=== PATIENT | female | born 1965 | race Caucasian/White ===

== ENCOUNTER 2020-12-07 10:05 | Outpatient (REF) | payer SELFPAY ==
[2020-12-07 10:16] LABS: MANUAL DIFF FLAG NO
[2020-12-07 10:36] LABS: Basophils Absolute Auto 0.1 X10*3/uL (0.0-0.2); Eosinophils Percent Auto 0.2 % (0-4); Hematocrit 40.6 % (37-47); Lymphocytes Absolute Auto 2.4 X10*3/uL (1.2-4.9); Lymphocytes Percent Auto 49.7 % (20-40); Mean Corpuscular Hemoglobin 29.3 pg (27.0-33.0); Mean Corpuscular Volume 91.4 fL (80-98); Mean Platelet Volume 10.2 fL (9.4-12.3); Monocytes Absolute Auto 0.3 X10*3/uL (0.1-1.2); Monocytes Percent Auto 6.7 % (2-11); Neutrophils Percent Auto 42.4 % (45-73); Platelet Count 265 X10*3/uL (160-400); Red Blood Count 4.44 X10*6/uL (4.20-5.50); Red Cell Distribution Width 13.2 % (11.0-16.0); White Blood Count 4.8 X10*3/uL (4.8-10.8)
[2020-12-07 11:04] LABS: Glucose Urine UA NEG (NEG); Leukocyte Esterase Urine NEG (NEG); Nitrite Urine NEG (NEG); Urine Blood NEG (NEG); Urine Ketones NEG (NEG); Urine Protein NEG (NEG-TRACE)
[2020-12-07 11:07] LABS: Alanine Aminotransferase 22 U/L (0-31); Albumin Level 3.8 g/dL (3.5-5.0); Alkaline Phosphatase 63 U/L (39-117); Anion Gap 11 (12-20); Aspartate Amino Transferase 18 U/L (5-31); Bilirubin Total 0.6 mg/dL (0.0-1.0); Blood Urea Nitrogen 16 mg/dL (9-16); Calcium 8.5 mg/dL (8.4-10.2); Carbon Dioxide 28 mmol/L (22-29); Chloride 104 mmol/L (96-108); Cholesterol 219 mg/dL; Estimated Glomerular Filt Rate > 60; Glucose Fasting 69 mg/dL (60-99); HDL Cholesterol 59 mg/dL; LDL Cholesterol Calculated 146 mg/dl; Potassium 4.4 mmol/L (3.3-5.1); Sodium 139 mmol/L (135-145); Total Protein 6.1 g/dL (6.5-8.0); Triglycerides 74 mg/dL
[2020-12-07 11:09] LABS: Appearance Urine CLEAR; Color Urine YELLOW
== END 2020-12-07 10:06 | disposition home or self-care (01) ==
LOC: HO.LNP 10:05
PROVIDERS: Visit Provider Internal Medicine
DX: Z00.00 Encounter for general adult medical examination without abnormal findings (principal); F41.9 Anxiety disorder, unspecified; D72.820 Lymphocytosis (symptomatic); E78.00 Pure hypercholesterolemia, unspecified
CPT/HCPCS: 80053; 80061; 81003; 84443; 85025

== ENCOUNTER 2021-12-16 11:18 | Outpatient (REF) | payer OTHER, SELFPAY ==
[2021-12-16 11:22] LABS: MANUAL DIFF FLAG NO
[2021-12-16 11:30] LABS: Appearance Urine HAZY; Basophils Percent Auto 0.8 % (0-2); Color Urine YELLOW; Eosinophils Absolute Auto 0.1 X10*3/uL (0.0-0.4); Eosinophils Percent Auto 1.3 % (0-4); Glucose Urine UA NEG (NEG); Hematocrit 42.8 % (37.0-47.0); Hemoglobin 13.8 g/dl (12.0-16.0); Imm Gran Abs Auto 0.01 X10*3/uL (0.00-0.03); Imm Gran Pct Auto 0.2 % (0.0-0.4); Leukocyte Esterase Urine NEG (NEG); Lymphocytes Absolute Auto 2.2 X10*3/uL (1.2-4.9); Lymphocytes Percent Auto 44.9 % (20-40); Mean Corpuscular HGB Conc 32.2 g/dl (31.0-35.0); Mean Corpuscular Hemoglobin 29.7 pg (27.0-33.0); Mean Corpuscular Volume 92.2 fL (80.0-98.0); Mean Platelet Volume 10.2 fL (9.4-12.3); Monocytes Absolute Auto 0.3 X10*3/uL (0.1-1.2); Monocytes Percent Auto 6.9 % (2-11); Neutrophils Absolute Auto 2.2 x10*3/uL (2.0-8.3); Neutrophils Percent Auto 45.9 % (45-73); Nitrite Urine NEG (NEG); Platelet Count 266 X10*3/uL (160-400); Red Blood Count 4.64 X10*6/uL (4.20-5.50); Red Cell Distribution Width 14.2 % (11.0-16.0); Specific Gravity - Urine 1.015 (1.005-1.025); Urine Blood NEG (NEG); Urine Ketones NEG (NEG); Urine Protein NEG (NEG-TRACE); White Blood Count 4.8 X10*3/uL (4.8-10.8)
[2021-12-16 11:42] LABS: Alanine Aminotransferase 14 U/L (0-31); Albumin Level 3.8 g/dL (3.5-5.0); Alkaline Phosphatase 60 U/L (39-117); Anion Gap 10 (12-20); Aspartate Amino Transferase 15 U/L (5-31); Bilirubin Total 0.5 mg/dL (0.0-1.0); Blood Urea Nitrogen 17 mg/dL (9-16); Calcium 9.3 mg/dL (8.4-10.2); Carbon Dioxide 29 mmol/L (22-29); Chloride 105 mmol/L (96-108); Cholesterol 280 mg/dL; Estimated Glomerular Filt Rate > 60; Glucose Fasting 89 mg/dL (60-99); HDL Cholesterol 75 mg/dL; LDL Cholesterol Calculated 191 mg/dl; Potassium 4.1 mmol/L (3.3-5.1); Sodium 140 mmol/L (135-145); Total Protein 6.2 g/dL (6.5-8.0); Triglycerides 74 mg/dL
[2021-12-16 12:05] LABS: TSH reflex Free T4 2.25 uIU/mL (0.32-4.0)
== END 2021-12-16 11:19 | disposition home or self-care (01) ==
LOC: HO.LNP 11:18
PROVIDERS: Visit Provider Internal Medicine
DX: Z00.00 Encounter for general adult medical examination without abnormal findings (principal); D72.820 Lymphocytosis (symptomatic); E78.00 Pure hypercholesterolemia, unspecified; Z83.49 Family history of other endocrine, nutritional and metabolic diseases
CPT/HCPCS: 80053; 80061; 81003; 84443; 85025

== ENCOUNTER 2022-05-09 11:30 | Outpatient (REF) | payer OTHER, SELFPAY ==
[2022-05-09 12:40] LABS: Cholesterol 239 mg/dL; HDL Cholesterol 76 mg/dL; LDL Cholesterol Calculated 150 mg/dl; Triglycerides 67 mg/dL
== END 2022-05-09 11:31 | disposition home or self-care (01) ==
LOC: HO.LNP 11:30
PROVIDERS: Visit Provider Internal Medicine
DX: E78.00 Pure hypercholesterolemia, unspecified (principal)
CPT/HCPCS: 80061

== ENCOUNTER 2022-08-21 11:06 | Day surgery (SDC) | payer OTHER, SELFPAY ==
--- NOTE | 2022-08-18 13:52 | P.CONAN_ITS ---
Documented by User: Judy Monet NP 08/18/22 13:55 HPI - Anesthesia Eval Consult details Narrative: 57yo F for Colonoscopy [facility] Past Medical History Medical History Elevated cholesterol Plantar fasciitis Surgical History Surgical History H/O colonoscopy with polypectomy Social History Social History Patient Tobacco Use Status: Never used Tobacco Use of substances other than those prescribed or required for medical reasons: No Are you DNR?: No Advance Directives: No Advance Directives Information Provided: Yes Patient : No Meds Allergies Allergy/AdvReac Type Severity Reaction Status Date / Time penicillin G Allergy Mild Hives Verified 08/21/22 11:14 Home Medications Medication Instructions Recorded Confirmed Last Taken Type Fish Oil 08/18/22 Unknown History Vitamin D3 08/18/22 Unknown History multivitamin with minerals 08/18/22 08/18/22 Unknown History vitamin B complex 08/18/22 Unknown History vitamin E 08/18/22 Unknown History Exam Exam Date and Time: August 18, 2022 135 Assessment and Plan Assessment Anesthesia Assessment: Chart Reviewed Documented by User: Telma Magaña MD 08/21/22 11:59 [facility] Past Medical History Medical History Elevated cholesterol Plantar fasciitis Functional capacity: independent ambulation Patient : No Surgical History Surgical History H/O colonoscopy with polypectomy Social History Social History Patient Tobacco Use Status: Never used Tobacco Use of substances other than those prescribed or required for medical reasons: No Are you DNR?: No Advance Directives: No Advance Directives Information Provided: Yes Patient : No Meds Allergies Allergy/AdvReac Type Severity Reaction Status Date / Time penicillin G Allergy Mild Hives Verified 08/21/22 11:14 Home Medications Medication Instructions Recorded Confirmed Last Taken Type Fish Oil 08/18/22 Unknown History Vitamin D3 08/18/22 Unknown History multivitamin with minerals 08/18/22 08/18/22 Unknown History vitamin B complex 08/18/22 Unknown History vitamin E 08/18/22 Unknown History Exam Airway Mallampati Class: II TM Dist: >3cm Neck ROM: Full Heart: RRR Lungs: Aj Assessment and Plan Final Anesthetic Review ASA Class: II Final Preanesthetic Review: No Changes in Pt Med Stat, Meds/Allgs Chart Reviewed, Consent Obtained/Reviewed and Anes Risks/Benef Reviewed Patient Risk: Low Procedure Risk: Low Anesthetic Plan Anesthetic Plan: MAC: Disposition: Standard PACU
[2022-08-21 11:15] VITALS: BMI 20.1
[2022-08-21 11:22] VITALS: BP 119/70; PULSE 80; RESP 16; TEMP 36.9; O2SAT 100
[2022-08-21] MEDS: Lactated Ringers 1,000 ML 100 ML IVCONT (11:44)
--- NOTE | 2022-08-21 13:09 | P.BOP_ITS ---
Brief Operative Note Date of Service: 08/21/22 Pre-op diagnosis: Screening Post-op diagnosis: other (Polyps) Procedure: Colonoscopy to the cecum and TI with hot snare polypectomy at 40cm and at 60cm, and bx/removal of transverse colon polyp Surgeon: Bry Correa Anesthesia: MAC Was an Cigarette Making Machine Catcher used for this Procedure?: No Estimated blood loss (mL): 2.0 Pathology: other (A. Polyp at 40cm B. Transverse colon polyp C. Polyp at 60cm) Condition: stable Disposition: PACU
[2022-08-21 13:10] VITALS: BP 99/56; PULSE 79; RESP 16; TEMP 36.9; O2SAT 100
[2022-08-21 13:24] VITALS: BP 111/63; PULSE 71; RESP 16; O2SAT 98
[2022-08-21 13:38] VITALS: BP 118/54; PULSE 73; RESP 16; TEMP 36.8; O2SAT 98
--- NOTE | 2022-08-21 13:39 | HO.POSTANES ---
Post Anesthesia Evaluation Post Anesthesia Evaluation Vital Signs: Vital Signs Temp Pulse Resp BP Pulse Ox O2 Del Method 08/21/22 13:38 98.2 F 73 16 118/54 L 98 Room Air 08/21/22 13:24 71 16 111/63 98 Room Air 08/21/22 13:10 98.4 F 79 16 99/56 L 100 Room Air 08/21/22 11:22 98.5 F 80 16 119/70 100 Room Air Anesthesia: Monitored Mental Status: Awake Pain Control: Satisfactory Nausea/Vomiting: None Hydration: Adequate Anesthesia-Related Issues: No Anes. Related Issues
--- NOTE | 2022-08-21 14:21 | OP_ITS ---
SURGEON: Bry Correa MD INDICATIONS: The patient presents for evaluation of personal history of tubular adenoma of the colon and colorectal cancer screening. Full consent was obtained from her for this, including risks of bleeding and perforation. PREOPERATIVE DIAGNOSIS: POSTOPERATIVE DIAGNOSIS: PROCEDURE PERFORMED: ESTIMATED BLOOD LOSS: COMPLICATIONS: ANESTHESIA: Monitored anesthesia care. ASSISTANTS: SPECIMENS: PROCEDURE: Colonoscopy to the cecum and terminal ileum with hot snare polypectomy x 2, and biopsy and removal of polyp. PREOPERATIVE DIAGNOSES: Colorectal cancer screening and personal history of tubular adenoma of the colon. POSTOPERATIVE DIAGNOSES: Colorectal cancer screening and personal history of tubular adenoma of the colon, colon polyps, sigmoid diverticulosis, and internal hemorrhoids. PROCEDURE IN DETAIL: The patient was placed in left lateral decubitus position. The digital rectal exam revealed no abnormalities. The Olympus video pediatric colonoscope was entered into the rectum and advanced easily to the cecum. Once in the cecum, I did identify normal appearing cecal pouch with the appendicial orifice and a normal appearing ileocecal valve. The terminal ileum was cannulated and appeared normal. Scope was withdrawn back in the colon. The entire cecum and ileocecal valve appeared normal. The scope was then slowly withdrawn assessing all mucosal surface carefully. Preparation was excellent. In the transverse colon was an approximately 3 or 4 mm polyp which was biopsied and completely removed with the cold biopsy forceps. At 60 cm was an approximately 5 or 6 mm polyp, which removed by hot snare polypectomy. This was recovered by suction, although the pieces were not definitively consistent with tissue, but we will see what the pathology shows. The polypectomy site appeared clean, without any sign of residual polyp nor bleeding. At 40 cm was an approximately 12 mm flat, but slightly raised polyp, which was removed in piecemeal fashion and recovered by suction. The polypectomy site appeared clean without any sign of residual polyp nor bleeding. I did not visualize any other polyps, colitis, or angiodysplasia. There was a mild amount of sigmoid diverticulosis. In the rectum the scope was retroflexed, visualizing internal hemorrhoids, but no other pathology. The rectal mucosa appeared normal. The scope was straightened and withdrawn from the patient. She tolerated the procedure well and was returned to the recovery area in stable condition. IMPRESSION: 1. Colon polyps. 2. Diverticulosis. 3. Internal hemorrhoids. PLAN: The results of the pathology will be checked. She was advised not to use any aspirin, NSAIDs nor fish oil for 1 week. I recommended repeat colonoscopy in 5 years. She was otherwise seen on p.r.n. basis. MD WILLIS Enamorado/MILY / [id number] MTDD
== END 2022-08-21 14:08 | disposition home or self-care (01) ==
PROVIDERS: PCP Internal Medicine; Visit Provider Internal Medicine
PROC: 0DJD8ZZ Inspection of Lower Intestinal Tract, Via Natural or Artificial Opening Endoscopic (ICD-10-PCS; CPT 45378; principal; 2022-08-21 11:30)
DX: D12.6 Benign neoplasm of colon, unspecified (principal); Z86.010 Personal history of colon polyps; K57.90 Diverticulosis of intestine, part unspecified, without perforation or abscess without bleeding; K64.8 Other hemorrhoids
CPT/HCPCS: 45385; 45380; 88305

== ENCOUNTER 2023-03-30 10:46 | Outpatient (REF) | payer OTHER, SELFPAY ==
[2023-03-30 10:51] LABS: MANUAL DIFF FLAG NO
[2023-03-30 11:07] LABS: Basophils Absolute Auto 0.1 X10*3/uL (0.0-0.2); Basophils Percent Auto 1.2 % (0-2); Eosinophils Percent Auto 0.8 % (0-4); Hematocrit 39.8 % (37.0-47.0); Imm Gran Abs Auto 0.01 X10*3/uL (0.00-0.03); Imm Gran Pct Auto 0.2 % (0.0-0.4); Lymphocytes Absolute Auto 2.5 X10*3/uL (1.2-4.9); Lymphocytes Percent Auto 51.3 % (20-40); Mean Corpuscular HGB Conc 32.7 g/dl (31.0-35.0); Mean Corpuscular Volume 91.9 fL (80.0-98.0); Mean Platelet Volume 10.3 fL (9.4-12.3); Monocytes Absolute Auto 0.4 X10*3/uL (0.1-1.2); Monocytes Percent Auto 7.8 % (2-11); Neutrophils Absolute Auto 1.9 x10*3/uL (2.0-8.3); Neutrophils Percent Auto 38.7 % (45-73); Platelet Count 275 X10*3/uL (160-400); Red Blood Count 4.33 X10*6/uL (4.20-5.50); Red Cell Distribution Width 13.9 % (11.0-16.0); White Blood Count 4.9 X10*3/uL (4.8-10.8)
[2023-03-30 11:08] LABS: Alanine Aminotransferase 10 U/L (0-31); Albumin Level 3.7 g/dL (3.5-5.0); Alkaline Phosphatase 59 U/L (39-117); Anion Gap 11 (12-20); Aspartate Amino Transferase 15 U/L (5-31); Bilirubin Total 0.6 mg/dL (0.0-1.0); Blood Urea Nitrogen 15 mg/dL (9-16); Calcium 8.9 mg/dL (8.4-10.2); Carbon Dioxide 28 mmol/L (22-29); Chloride 105 mmol/L (96-108); Cholesterol 263 mg/dL (<200); Estimated Glomerular Filt Rate > 60; Glucose Fasting 76 mg/dL (60-99); HDL Cholesterol 75 mg/dL (>40); LDL Cholesterol Calculated 175 mg/dL (<100); Sodium 140 mmol/L (135-145); Total Protein 6.1 g/dL (6.5-8.0); Triglycerides 67 mg/dL (<150)
[2023-03-30 11:11] LABS: Appearance Urine Clear; Color Urine Yellow; Glucose Urine UA Negative (Negative); Leukocyte Esterase Urine Small (1+) (Negative); Nitrite Urine Negative (Negative); UMIC TRIGGER UACC YES; Urine Blood Negative (Negative); Urine Ketones Negative (Negative); Urine Protein Negative (Neg-Trace)
[2023-03-30 11:13] LABS: Bacteria Urine None Seen (None Seen); Hyaline Casts Urine 0-2 /LPF (0-2); RBC Urine 0-2 /HPF (0-2); UACC Culture Trigger YES
[2023-04-04 11:18] LABS: Apolipoprotein B 119 mg/dL (<90)
== END 2023-03-30 10:47 | disposition home or self-care (01) ==
LOC: HO.LNP 10:46
PROVIDERS: Visit Provider Internal Medicine
DX: Z00.00 Encounter for general adult medical examination without abnormal findings (principal); D72.820 Lymphocytosis (symptomatic); E78.00 Pure hypercholesterolemia, unspecified; R82.90 Unspecified abnormal findings in urine
CPT/HCPCS: 80053; 80061; 81001; 82172; 85025; 87086

== ENCOUNTER 2023-08-02 11:19 | Outpatient (REF) | payer OTHER, SELFPAY ==
[2023-08-02 11:53] LABS: Alanine Aminotransferase 23 U/L (0-31); Albumin Level 4.2 g/dL (3.5-5.0); Alkaline Phosphatase 63 U/L (39-117); Aspartate Amino Transferase 24 U/L (5-31); Bilirubin Direct 0.2 mg/dL (0.0-0.5); Bilirubin Total 0.5 mg/dL (0.0-1.0); Cholesterol 174 mg/dL (<200); HDL Cholesterol 78 mg/dL (>40); LDL Cholesterol Calculated 83 mg/dL (<100); Total Protein 6.7 g/dL (6.5-8.0); Triglycerides 66 mg/dL (<150)
[2023-08-02 12:35] LABS: Reflex LDLD? No
== END 2023-08-02 11:20 | disposition home or self-care (01) ==
LOC: HO.LNP 11:19
PROVIDERS: Visit Provider Internal Medicine
DX: E78.00 Pure hypercholesterolemia, unspecified (principal)
CPT/HCPCS: 80061; 80076

== ENCOUNTER 2024-02-05 11:10 | Outpatient (REF) | payer OTHER, SELFPAY ==
[2024-02-05 11:58] LABS: Alanine Aminotransferase 15 U/L (0-31); Albumin Level 4.2 g/dL (3.5-5.0); Alkaline Phosphatase 69 U/L (39-117); Aspartate Amino Transferase 18 U/L (5-31); Bilirubin Direct 0.2 mg/dL (0.0-0.5); Bilirubin Total 0.6 mg/dL (0.0-1.0); Cholesterol 271 mg/dL (<200); HDL Cholesterol 73 mg/dL (>40); LDL Cholesterol Calculated 181 mg/dL (<100); Total Protein 6.7 g/dL (6.5-8.0); Triglycerides 88 mg/dL (<150)
[2024-02-05 13:37] LABS: Reflex LDLD? No
== END 2024-02-05 11:11 | disposition home or self-care (01) ==
LOC: HO.LNP 11:10
PROVIDERS: Visit Provider Internal Medicine
DX: E78.00 Pure hypercholesterolemia, unspecified (principal)
CPT/HCPCS: 80061; 80076

== ENCOUNTER 2024-03-31 10:59 | Outpatient (REF) | payer OTHER, SELFPAY ==
[2024-03-31 11:07] LABS: MANUAL DIFF FLAG NO
[2024-03-31 11:16] LABS: Basophils Percent Auto 0.7 % (0-2); Hematocrit 40.2 % (37.0-47.0); Hemoglobin 13.1 g/dl (12.0-16.0); Imm Gran Abs Auto 0.01 X10*3/uL (0.00-0.03); Imm Gran Pct Auto 0.2 % (0.0-0.4); Lymphocytes Absolute Auto 2.2 X10*3/uL (1.2-4.9); Lymphocytes Percent Auto 47.3 % (20-40); Mean Corpuscular HGB Conc 32.6 g/dl (31.0-35.0); Mean Corpuscular Hemoglobin 29.5 pg (27.0-33.0); Mean Corpuscular Volume 90.5 fL (80.0-98.0); Mean Platelet Volume 9.8 fL (9.4-12.3); Monocytes Absolute Auto 0.3 X10*3/uL (0.1-1.2); Monocytes Percent Auto 6.6 % (2-11); Neutrophils Absolute Auto 2.1 x10*3/uL (2.0-8.3); Neutrophils Percent Auto 45.2 % (45-73); Platelet Count 305 X10*3/uL (160-400); Red Blood Count 4.44 X10*6/uL (4.20-5.50); Red Cell Distribution Width 14.5 % (11.0-16.0); White Blood Count 4.6 X10*3/uL (4.8-10.8)
[2024-03-31 11:25] LABS: Appearance Urine Clear; Color Urine Yellow; Glucose Urine UA Negative (Negative); Leukocyte Esterase Urine Negative (Negative); Nitrite Urine Negative (Negative); PH 6.5 (5.0-9.0); Urine Blood Negative (Negative); Urine Ketones Negative (Negative); Urine Protein Negative (Neg-Trace)
[2024-03-31 11:29] LABS: Bacteria Urine None Seen (None Seen); Hyaline Casts Urine 0-2 /LPF (0-2); RBC Urine 0-2 /HPF (0-2); Squamous Epithelial Cell Urine 0-2 /HPF (0-2); WBC Urine 0-5 /HPF (0-5)
[2024-03-31 12:06] LABS: Alanine Aminotransferase 13 U/L (0-31); Albumin Level 3.7 g/dL (3.5-5.0); Alkaline Phosphatase 60 U/L (39-117); Anion Gap 11 (12-20); Aspartate Amino Transferase 16 U/L (5-31); Bilirubin Total 0.4 mg/dL (0.0-1.0); Blood Urea Nitrogen 13 mg/dL (9-16); Calcium 8.9 mg/dL (8.4-10.2); Carbon Dioxide 25 mmol/L (22-29); Chloride 106 mmol/L (96-108); Cholesterol 254 mg/dL (<200); Estimated Glomerular Filt Rate > 60; Glucose Fasting 86 mg/dL (60-99); HDL Cholesterol 73 mg/dL (>40); LDL Cholesterol Calculated 168 mg/dL (<100); Potassium 3.9 mmol/L (3.3-5.1); Sodium 138 mmol/L (135-145); Triglycerides 69 mg/dL (<150)
== END 2024-03-31 11:00 | disposition home or self-care (01) ==
LOC: HO.LNP 10:59
PROVIDERS: Visit Provider Internal Medicine
DX: Z00.00 Encounter for general adult medical examination without abnormal findings (principal); D72.820 Lymphocytosis (symptomatic); E78.00 Pure hypercholesterolemia, unspecified
CPT/HCPCS: 80053; 80061; 81001; 85025

== ENCOUNTER 2024-07-24 10:53 | Outpatient (REF) | payer OTHER, SELFPAY ==
--- OUTSIDE RECORDS SUMMARY | 2024-07-24 11:35 | XMS_ITS ---
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 Generated for Adelaidei salo/Vicki/eTransmitting on:?07/24/2024 11:35 AM EST
--- OUTSIDE RECORDS SUMMARY | 2024-07-24 11:35 | XMS_ITS ---
Author Organization Samuel Schuster MD Address [address] [place] [phone] Care Team Providers Care Architect Naval Name Role Phone Samuel Schuster Primary Care Provider ALLERGIES Allergen (clinical drug ingredient) Drug/Non Drug Allergy documented on EMR Reaction Allergy Type Onset Date Status Penicillin (uncoded) hives Allergy Active REASON FOR VISIT lump on left hip x 30 years getting bigger MEDICATIONS Medication SIG (Take, Route, Frequency, Duration) Notes [...] day for 90 days 04/07/2024 Active Nystatin 741075 UNIT/GM 1 application to affected area Externally Twice a day for 14 days 11/21/2016 Not-Taking VITAL SIGNS BMI 22.24 kg/m2 06/23/2024 Blood pressure systolic 102 mm Hg 06/23/20 24 Blood pressure diastolic 64 mm Hg 024 Height 70 in 06/23/2024 Weight 155 lbs 06/23/2024 weight is up 7 pounds since 04-07-24 Encounters Encounter Location Date Provider Diagnosis Samuel Schuster MD [address] [place] [address] [address] [place], [place] [phone] 06/23/2024 Samuel Schuster Lipoma of hip D17.20 ASSESSMENTS Encounter Date Diagnosis Assessment Notes Treatment Notes Treatment Clinical Notes 06/23/2024 Lipoma of hip (ICD-10 - D17.20) appears most consistant with a lipoma and has been there for 30 years. would recommend just watching it. PLAN OF TREATMENT Treatment Notes Assessment Notes Lipoma of hip appears most consist ant with a lipoma and has been there for 30 years. would recommend just watching it. Next Appt Details Provider Name:Samuel mota, 10/09/2024 07:15:00 AM, [address] [place] [address], [address], [place], [place], [phone], Provider Name:Samuel mota, 04/03/2025 07:00:00 AM, [address] [place] [address], [address], [place], [place], [phone], Provider Name:Samuel mota, 04/10/2025 08:30:00 AM, [address] [place] [address], [address], [place], [place], [phone], Progress Notes * Examination Category Sub-Category Detail Notes General Examination GENERAL APPEARANCE: well dev eloped, well nourished MUSCULOSKELETAL: left hip with a 6 in ch lipomatous mass that has been there since her s
--- OUTSIDE RECORDS SUMMARY | 2024-07-24 11:35 | XMS_ITS | Patient Health Record ---
Author Organization Samuel Schuster MD Address [address] [place], [place] [phone] Care Team Providers Care Fire Lookout Name Role Phone Samuel Schuster Primary Care Provider [phone] ALLERGIES Allergen (clinical drug ingredient) Drug/Non Drug Allergy documented on EMR Reaction Allergy Type Onset Date Status Penicillin (uncoded) hives Allergy Active RESULTS Component Value Reference Range Notes Lisa Scott Reviewed date:08/02/2023 12:12:21 PM Interpretation: Performing Lab:[facility], [address] [place] [phone] Notes/Report: Lisa Scott See Note Specimen held untested for 24 hours; Call to request Chemistry testing. Liver Panel Reviewed date:08/02/2023 05:14:46 PM Interpretation: Performing Lab:[facility], [address] [place] [phone] Notes/Report: Bilirubin Total 0.5 0.0-1.0 mg/dL Bilirubin Direct 0.2 0.0-0.5 mg/dL Aspartate Amino Transferase 24 5-31 U/L Alanine Aminotransferase 23 0-31 U/L Total Protein 6.7 6.5-8.0 g/dL Albumin Level 4.2 3.5-5.0 g/dL Alkaline Phosphatase 63 39-117 U/L Lipid Panel with Reflex Reviewed date:08/02/2023 05:17:55 PM Interpretation: Performing Lab:[facility], [address] [place] [phone] Notes/Report: Triglycerides 66 <150 mg/dL Desirable Triglyceride: less than 150 mg/dL Borderline High Triglyceride 150-199 mg/dL High Triglyceride: 200-499 mg/dL Very High Triglyceride: greater than or equal to 5OO mg/dL Cholesterol 174 <200 mg/dL Desirable Cholesterol: less than 200 mg/dL Borderline High Cholesterol: 200-239 mg/dL High Cholesterol: greater than 239 mg/dL LDL Cholesterol Calculated 83 <100 mg/dL Desirable LDL: less than 100 mg/dL Near Optimal/Above Optimal LDL: 110-129 mg/dL Borderline High LDL: 130-159 mg/dL High LDL: 160-189 mg/dL Very High LDL: greater than or equal to 190 mg/dL HDL Cholesterol 78 >40 mg/dL Desirable HDL: greater than 40 mg/dL Note: This HDL assay may give artificially low results in patients with liver disease. MAMMOGRAM DIGITAL BILATERAL SCREEN Reviewed date:10/26/2023 02:23:11 PM Interpretation:Negative Performing Lab: Notes/Report: Negative Lisa Gold Reviewed date:02/05/2024 12:30:53 PM Interpretation: Performing Lab:[facility], [address] [place] [phone] Notes/Report: Hold Gold See Note Specimen held untested for 24 hours; Call to request Chemistry testing. Liver Panel Reviewed date:02/06/2024 02:01:30 PM Interpretation: Performing Lab:[facility], [address] [place] [phone] Notes/Report: Bilirubin Total 0.6 0.0-1.0 mg/dL Bilirubin Direct 0.2 0.0-0.5 mg/dL Aspartate Amino Transferase 18 5-31 U/L Alanine Aminotransferase 15 0-31 U/L Total Protein 6.7 6.5-8.0 g/dL Albumin Level 4.2 3.5-5.0 g/dL Alkaline Phosphatase 69 39-117 U/L Lipid Panel with Reflex Reviewed date:04/07/2024 02:12:47 PM Interpretation:see back 9-16-2024 Performing Lab:[facility], [address] [place] [phone] Notes/Report: Triglycerides 88 <150 mg/dL Desirable Triglyceride: less than 150 mg/dL Borderline High Triglyceride 150-199 mg/dL High Triglyceride: 200-499 mg/dL Very High Triglyceride: greater than or equal to 5OO mg/dL Cholesterol 271 <200 mg/dL Desirable Cholesterol: less than 200 mg/dL Borderline High Cholesterol: 200-239 mg/dL High Cholesterol: greater than 239 mg/dL LDL Cholesterol Calculated 181 <100 mg/dL Desirable LDL: less than 100 mg/dL Near Optimal/Above Optimal LDL: 110-129 mg/dL Borderline High LDL: 130-159 mg/dL High LDL: 160-189 mg/dL Very High LDL: greater than or equal to 190 mg/dL HDL Cholesterol 73 >40 mg/dL Desirable HDL: greater than 40 mg/dL Note: This HDL assay may give artificially low results in patients with liver disease. Complete Blood Count Auto Di ff Reviewed date:04/01/2024 08:45:29 AM Interpretation: Performing Lab:[facility], [address] [place] [phone] Notes/Report: White Blood Count 4.6 4.8-10.8 X10*3/uL Red Blood Count 4.44 4.20-5.50 X10*6/uL Hemoglobin 13.1 12.0-16.0 g/dl Hematocrit 40.2 37.0-47.0 % Mean Corpuscular Volume 90.5 80.0-98.0 fL Mean Corpuscular Hemoglobin 29.5 27.0-33.0 pg Mean Corpuscular HGB Conc 32.6 31.0-35.0 g/dl Red Cell Distribution Width 14.5 11.0-16.0 % Platelet Count 305 160-400 X10*3/uL Mean Platelet Volume 9.8 9.4-12.3 fL Neutrophils Percent Auto 45.2 45-73 % Imm Gran Pct Auto 0.2 0.0-0.4 % Lymphocytes Percent Auto 47.3 20-40 % Monocytes Percent Auto 6.6 2-11 % Eosinophils Percent Auto 0.0 0-4 % Basophils Percent Auto 0.7 0-2 % NRBC Pct Auto 0.0 0.0-0.2 /100WBC Neutrophils Absolute Auto 2.1 2.0-8.3 x10*3/u L Imm Gran Abs Auto 0.01 0.00-0.03 X10*3/uL Lymphocytes Absolute Auto 2.2 1.2-4.9 X10*3/u L Monocytes Absolute Auto 0.3 0.1-1.2 X10*3/uL Eosinophils Absolute Auto 0.0 0.0-0.4 X10*3/u L Basophils Absolute Auto 0.0 0.0-0.2 X10*3/uL NRBC Abs Auto 0.000 0.0-0.012 X10*3/uL Comprehensive Lenore. Panel Fa st Reviewed date:03/31/2024 04:05:09 PM Interpretation: Performing Lab:[address] [phone] Notes/Report: Sodium 138 135-145 mmol/L Potassium 3.9 3.3-5.1 mmol/L Chloride 106 96-108 mmol/L Carbon Dioxide 25 22-29 mmol/L Anion Gap 11 12-20 Blood Urea Nitrogen 13 9-16 mg/dL Creatinine 0.71 0.5-1.4 mg/dL Estimated Glomerular Filt Rate > 60 NOTE: For -Welsh individuals, multiply the result by 1.210. Chronic Kidney Disease: Estimated GFR < 60 mL/min/1.73m2 Severe Kidney Disease: Estimated GFR < 15 mL/min/1.73m2 Glucose Fasting 86 60-99 mg/dL Calcium 8.9 8.4-10.2 mg/dL Bilirubin Total 0.4 0.0-1.0 mg/dL Aspartate Amino Transferase 16 5-31 U/L Alanine Aminotransferase 13 0-31 U/L Total Protein 6.0 6.5-8.0 g/dL Albumin Level 3.7 3.5-5.0 g/dL Alkaline Phosphatase 60 39-117 U/L Lipid Panel Reviewed date:03/31/2024 04:02:04 PM Interpretation: Performing Lab:[facility], [address] [place] [phone] Notes/Report: Triglycerides 69 <150 mg/dL Desirable Triglyceride: less than 150 mg/dL Borderline High Triglyceride 150-199 mg/dL High Triglyceride: 200-499 mg/dL Very High Triglyceride: greater than or equal to 5OO mg/dL Cholesterol 254 <200 mg/dL Desirable Cholesterol: less than 200 mg/dL Borderline High Cholesterol: 200-239 mg/dL High Cholesterol: greater than 239 mg/dL LDL Cholesterol Calculated 168 <100 mg/dL Desirable LDL: less than 100 mg/dL Near Optimal/Above Optimal LDL: 110-129 mg/dL Borderline High LDL: 130-159 mg/dL High LDL: 160-189 mg/dL Very High LDL: greater than or equal to 190 mg/dL HDL Cholesterol 73 >40 mg/dL Desirable HDL: greater than 40 mg/dL Note: This HDL assay may give artificially low results in patients with liver disease. UA ClnCatch+Micro w/rflx Cul t Reviewed date:03/31/2024 04:07:17 PM Interpretation: Performing Lab:[facility], [address] [place] [phone] Notes/Report: [id number] Urine, Clean Catch Color Urine Yellow Appearance Urine Clear PH 6.5 5.0-9.0 Glucose Urine UA Negative Negative mg/dL Urine Blood Negative Negative Specific [place] - Urine 1.010 1.005-1.025 Urine Protein Negative Neg-Trace mg/dL Urine Ketones Negative Negative mg/dL Nitrite Urine Negative Negative Leukocyte Esterase Urine Negative Negative RBC Urine 0-2 0-2 /HPF WBC Urine 0-5 0-5 /HPF Squamous Epithelial Cell Urine 0-2 0-2 /HPF Bacteria Urine None Seen None Seen Hyaline Casts Urine 0-2 0-2 /LPF REASON FOR REFERRAL Reason plantar fascitis Diagnosis 1 Plantar fasciitis (M 72.2) Referral Organization Samuel Schuster MD Referring Provider First Name Samuel Referring Provider Last Name Landen Referring Provider Speciality Internal M edicine Referred Provider [facility] R e[facility] Referred Provider Specialty Physical The rapist General Notes Jelly Melendez 10:33:31 AM EDT > patient called order / new on refaxed Nora Annette 12/31/2023 01:23:59 PM EDT > called they will be faxing over her last note Referral Priority Routine Referral Appointment Date 10/05/2023 MEDICATIONS Medication SIG (Take, Route, Frequency, Duration) Notes Start Date End Date Status Diprolene AF 0.05 % 1 application Externally Once a day for 30 days 11/24/2019 Not-Taking Advil PM 200-25 MG 2 capsules at bedtim e as needed Orally Once a day for 30 day(s) Not-Taking traZODone HCl 50 MG TAKE 1 TABLET BY MELODY TH EVERY DAY AT BEDTIME NEEDED FOR 30 DAYS for 90 Not-Taking Atorvastatin Calcium 40 MG 1 tablet Orally Once a day for 90 days 04/07/2024 Active Nystatin 734372 UNIT/GM 1 application to affected area Externally Twice a day for 14 days 11/21/2016 Not-Taking IMMUNIZATIONS Vaccine Route Administration Date Status Comme nts DECLINED, FLU Unknown 04/29/2013 Administered SARS-COV-2 Pfizer Unknown 11/05/2020 Administered SARS-COV-2 Pfizer Unknown 11/28/2020 Administered Shingrix Unknown 04/07/2024 Administered [facility] Fluarix Quadrivalent Unknown 12/03/2018 Refused PPSV23 (Pnemovax) Unknown 12/03/2018 Refused Fluarix Quadrivalent Unknown 05/31/2020 Refused PPSV23 (Pnemovax) Unknown 05/31/2020 Refused Fluarix Quadrivalent Unknown 05/16/2022 Refused Fluarix Quadrivalent - 150 Unknown 03/31/2024 Refused Fluarix Quadrivalent - 150 Unknown 04/07/2024 Refused SOCIAL HISTORY Tobacco Use: Social History Observation Description Date Details (start date - stop date) Never Smoker NA - NA Sex Assigned At : Social History Observation Description Sex Assigned At Unknown Tobacco Use/Smoking Question Answer Notes Patient is [...] Never (0 point) Points 2 Interpretation Negative PROBLEMS Problem Type ICD Code Onset Dates Problem Status W/U Status Risk SNOMED Code Notes Problem Lymphocytosis (D72.820) Active confirmed 50546509 Problem Tubular adenoma (D36.9) Active confirmed 511069846 Problem Anxiety (F41.9) Active confirmed 067044 02 Problem Primary insomnia (F51.01) Active confirmed 1895929 Problem Obstructive sleep ap tez (adult) (pediatric) (G47.33) Active confirmed Obstructive sleep apnea syndrome (disorder) (68007439) Problem Intrinsic eczema (L20.84) Active confirmed 74564619 Problem Family history of hypothyroidism (Z83.49) Active confirmed 884553807 Problem Elevated LDL cholesterol level (E78.00) Active confirmed 199728437 Problem OAB (overactive bladder) (N32.81) Active confirmed 533224720 Problem Hypercholesterolemia (E78.00) Active confirmed 83744901 Problem NITHYA (obstructive sle ep apnea) (G47.33) Active confirmed 72034175 Problem Basal cell carcinoma of skin, site unspecified (C44.91) Active confirmed 712567000 VITAL SIGNS Blood pressure diastolic 70 mm Hg 07/24/2024 montse ght is down 2 pounds since 06-23-24 Height 70 in 07/24/2024 weight is down 2 pounds since 06-23-24 Blood pressure systolic 98 mm Hg 07/24/2024 weig ht is down 2 pounds since 06-23-24 Weight 153 lbs 07/24/2024 weight is down 2 pounds since 06-23-24 BMI 21.95 kg/m2 07/24/2024 weight is down 2 pounds since 06-23-24 Encounters Encounter Location Date Provider Diagnosis Samuel Schuster MD [address] [place] [id number] 04/07/2024 Samuel Schuster Lymphocytosis D72.82 0 ; Annual physical exam Z00.00 ; Hypercholesterolemia E78.00 ; Elevated LDL cholesterol level E78.00 and Primary insomnia F51.01 Samuel Schuster MD [address] [place] [id number] 08/02/2023 Samuel Schuster Elevated LDL cholest donald level E78.00 Samuel Schuster MD [address] [place] [id number] 03/31/2024 Samuel Schuster Annual physical exam Z00.00 ; Lymphocytosis D72.820 ; Elevated LDL cholesterol level E78.00 and Hypercholesterolemia E78.00 Samuel Schuster MD [address] [place] [id number] 02/05/2024 Samuel Schuster Hypercholesterolemia E78.00 Samuel Schuster MD [address] [place] [id number] 08/09/2023 Samuel Schuster Plantar fasciitis M7 2.2 and Hypercholesterolemia E78.00 Samuel Schuster MD [address] [place] [id number] 07/24/2024 Samuel Schuster Habitual snoring R06 .83 and Elevated LDL cholesterol level E78.00 Samuel Schuster MD [address] [place] [id number] 06/23/2024 Samuel Schuster Lipoma of hip D17.20 ASSESSMENTS Encounter Date Diagnosis Assessment Notes Treatment Notes Treatment Clinical Notes 04/07/2024 Lymphocytosis (ICD-1 0 - D72.820) stable, will continue to monitor 04/07/2024 Annual physical exam (ICD-10 - Z00.00) labs reviewed and discussed with patient 08/02/2023 Elevated LDL cholest donald level (ICD-10 - E78.00) 03/31/2024 Lymphocytosis (ICD-1 0 - D72.820) 03/31/2024 Annual physical exam (ICD-10 - Z00.00) 02/05/2024 Hypercholesterolemia (ICD-10 - E78.00) 08/09/2023 Plantar fasciitis (I CD-10 - M72.2) try stopping the stair climbing 08/09/2023 Hypercholesterolemia (ICD-10 - E78.00) has done great on atorvastatin, will continue current regiment 07/24/2024 Habitual snoring (IC D-10 - R06.83) to go back to sleep medicine to be reevaluated 06/23/2024 Lipoma of hip (ICD-1 0 - D17.20) appears most consistant with a lipoma and has been there for 30 years. would recommend just watching it. 04/07/2024 Hypercholesterolemia (ICD-10 - E78.00) has agreed to go back on meds, nain understanding of mdication and diretion for use. 03/31/2024 Elevated LDL cholest donald level (ICD-10 - E78.00) 07/24/2024 Elevated LDL cholest donald level (ICD-10 - E78.00) 04/07/2024 Elevated LDL cholest donald level (ICD-10 - E78.00) 03/31/2024 Hypercholesterolemia (ICD-10 - E78.00) 04/07/2024 Primary insomnia (IC D-10 - F51.01) PLAN OF TREATMENT Pending Test Test Name Order Date Electrocardiogram (EKG) 11/11/2015 BONE DENSITY DEXA 11/02/2014 BONE DENSITY DEXA 06/08/2020 Liver Panel 07/24/2024 Lipid Panel 07/24/2024 XR DEXA axial skeleton 12/17/2020 Next Appt Details Provider Name:Samuel Wylie ier, 10/09/2024 07:15:00 AM, [address] [place] [address], [address], [phone], Provider Name:Samuel Wylie ier, 04/03/2025 07:00:00 AM, [address] [place] [address], [address], [phone], Provider Name:Samuel Wylie ier, 04/10/2025 08:30:00 AM, [address] [place] [address], [address], [phone], Insurance Providers Payer Name Payer Address Payer Phone Subscriber Number Group Number Insured Name Patient Relationship to Insured Coverage Start Date Coverage End Date [address] [place] [phone] [id number] GUI SORIA Self - patient is the insured MEDICAL (GENERAL) HISTORY Medical History History ICD Code 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 Martinez Snider,[facility] ([phone]) Mammo done 01/02 colonoscopy done 05/10/[address] Correa - repeat 5 years:[id number] colonoscopy repeat 2 years Elevated blood sugar
--- OUTSIDE RECORDS SUMMARY | 2024-07-24 11:35 | XMS_ITS ---
Author Organization Samuel Schuster MD Address [address] [place] [phone] Care Team Providers Care Roving Inspector Name Role Phone Samuel Schuster Primary Care Provider [phone] ALLERGIES Allergen (clinical drug ingredient) Drug/Non Drug Allergy documented on EMR Reaction Allergy Type Onset Date Status Penicillin (uncoded) hives Allergy Active REASON FOR VISIT 3 MO F/U MEDICATIONS Medication SIG (Take, Route, Frequency, Duration) [...] day for 90 days 04/07/2024 Active Nystatin 605562 UNIT/GM 1 application to affected area Externally Twice a day for 14 days 11/21/2016 Not-Taking VITAL SIGNS BMI 21.95 kg/m2 07/24/2024 Blood pressure systolic 98 mm Hg 07/24/19 25 Blood pressure diastolic 70 mm Hg 025 Height 70 in 07/24/2024 Weight 153 lbs 07/24/2024 weight is down 2 pounds [facility] 06-23-24 Encounters Encounter Location Date Provider Diagnosis Samuel Schuster MD [address] [place] [phone] 07/24/2024 Samuel Schuster Habitual snoring R06.83 and Elevated LDL cholesterol level E78.00 ASSESSMENTS Encounter Date Diagnosis Assessment Notes Treatment Notes Treatment Clinical Notes 07/24/2024 Habitual snoring (ICD-10 - R06.83) to go back to sleep medicine to be reevaluated 07/24/2024 Elevated LDL cholesterol level (ICD-10 - E78.00) PLAN OF TREATMENT Treatment Notes Assessment Notes Habitual snoring to go back to sleep medicine to be reevaluated Pending Test Test Name Order Date Liver Panel 07/24/2024 Lipid Panel 07/24/2024 Next Appt Details Provider Name:Samuel mota, 10/09/2024 07:15:00 AM, [address] [place] [address], [place] [address], [place], [place], [phone], Provider Name:Samuel mota, 04/03/2025 07:00:00 AM, [address] [place] [address], [address], [phone], Provider Name:Samuel mota, 04/10/2025 08:30:00 AM, [address] [place] [address], [phone], Progress Notes * Examination Category Sub-Category Detail Notes General Examination GENERAL APPEARANCE: alert, w ell hydrated, in no distress HEAD: normocephalic HEART: no murmurs, rubs, ga llops , regular rate and rhythm LUNGS: no wheezes, rales, r honchi , good air movement , clear to auscultation bilaterally SKIN: good turgor
--- OUTSIDE RECORDS SUMMARY | 2024-07-24 11:35 | XMS_ITS ---
Author Organization [facility] Address [address] [place] [phone] Care Team Providers Care Crate Tier Name Role Phone Landen MARQUES, Samuel Primary Care Provider Mat Russell [phone] Encounters Encounter [facility] [phone] [facility]/21/[facility] Mat Nieto Plan Of Treatment No Information Progress Notes * Bette SORIAPedroOB:1965 (59 yo F)Acc No.[id number]:12/21/2023 Progress Notes Patient:?Bette SROIAy Provider:?Mat Nieto DPM :1965???Age:58 Y???Sex:Female D ate:12/21/2023 Address:[address] [place], [place] [phone] Pcp:Samuel Schuster MD Subjective: * Chief Complaints: * ??? * Medical History:? Objective: * Vitals:? Assessment: Plan: * Treatment: * Images: * The named appointment provid er may or may not be the originator of this progress note, and it is not deemed complete until electronically signed by the appointment provider. Sign off status: Pending * Provider:?Mat Nieto DPM Date:? 024 Generated for Brandie leong/Vicki/eTransmitting on:?07/24/2024 11:35 AM EST
--- OUTSIDE RECORDS SUMMARY | 2024-07-24 11:35 | XMS_ITS ---
Author Organization [facility] Address [address] [place] [phone] Care Team Providers Care Employee Health Nurse Name Role Phone Landen MARQUES, Samuel Primary Care Provider Mat Russell [phone] Encounters Encounter Location Date [facility] [address] [place] [phone] 12/28/2023 Mat Nieto Plan Of Treatment No Information Progress Notes * Bette SORIAPedroOB:1965 (59 yo F)Acc No.[id number]:12/28/2023 Progress Notes Patient:?Bette SORIAy Provider:?Mat Nieto DPM :1965???Age:58 Y???Sex:Female D ate:12/28/2023 Address:[address] [place], [place] [phone] Pcp:Samuel Schuster MD Subjective: * Chief Complaints: [...]
--- OUTSIDE RECORDS SUMMARY | 2024-07-24 11:35 | XMS_ITS ---
Author Organization Samuel Schuster MD Address [address] [place] [phone] Care Team Providers Care Adjuster Piano Action Name Role Phone Samuel Schuster Primary Care Provider [phone] ALLERGIES Allergen (clinical drug ingredient) Drug/Non Drug Allergy documented on EMR Reaction Allergy Type Onset Date Status Penicillin (uncoded) hives Allergy Active REASON FOR VISIT ANNUAL EXAM/ must see cholesterol MEDICATIONS Medication SIG (Take, Route, Frequency, Duration) Notes Start Date End Date Status Diprolene AF 0.05 % 1 application Externally Once a day for 30 days 11/24/2019 Not-Taking Nystatin 576558 UNIT/GM 1 application to affected area Externally [...] a day for 90 days 04/07/2024 Active IMMUNIZATIONS Vaccine Route Administration Date Status Comme [...] W/U Status Risk SNOMED Code Notes Problem Primary insomnia (F51.01) Active confirmed 2670190 VITAL SIGNS BMI 21.23 kg/m2 04/07/2024 Blood pressure systolic 98 mm Hg 04/07/20 24 Blood pressure diastolic 60 mm Hg 024 Height 70 in 04/07/2024 Weight 148 lbs 04/07/2024 weight is down 6 pounds [facility] 08-09-23 Encounters Encounter Location Date Provider Diagnosis Samuel Schuster MD [address] [place] [address] [place] [phone] 04/07/2024 Samuel Schuster Lymphocytosis D72.82 0 ; Annual physical exam Z00.00 ; Hypercholesterolemia E78.00 ; Elevated LDL cholesterol level E78.00 and Primary insomnia F51.01 ASSESSMENTS Encounter Date Diagnosis Assessment Notes Treatment Notes Treatment Clinical Notes 04/07/2024 Lymphocytosis (ICD-1 0 - D72.820) stable, will continue to monitor 04/07/2024 Annual physical exam (ICD-10 - Z00.00) labs reviewed and discussed with patient 04/07/2024 Hypercholesterolemia (ICD-10 - E78.00) has agreed to go back on meds, vrbaluizamy understanding of mdication and diretion for use. 04/07/2024 Elevated LDL cholest donald level (ICD-10 - E78.00) 04/07/2024 Primary insomnia (IC D-10 - F51.01) PLAN OF TREATMENT Medication Medication Name Sig Start Date Stop [...] with patient Hypercholesterolemia has agreed to go mele terry on meds, nain understanding of mdication and diretion for use. Next Appt Details Follow Up: 3 Months, Reason: Provider Name:Samuel mota, 10/09/2024 07:15:00 AM, [address] [place] [address], [address], [phone], Provider Name:Samuel mota, 04/03/2025 07:00:00 AM, [address] [place] [address], [address], [phone], Provider Name:Samuel mota, 04/10/2025 08:30:00 AM, [address] [place] [address], [address], [phone], Progress Notes * Examination Category Sub-Category Detail Notes General Examination GENERAL APPEARANCE: well dev eloped, well nourished, in no acute distress HEAD: normocephalic, atrau matic EYES: pupils equal, round, reactive to light and accommodation, sclera non- icteric EARS: normal THROAT: clear NECK/THYROID: neck supple, [...] exam intact SKIN: warm and dry, no dipti picious lesions EXTREMITIES: no clubbing, cyanosi s, or edema BREASTS: No mass, no lump RECTAL EXAM: done by film numberer FEMALE GENITOURINARY: done by film numberer ORAL CAVITY: mucosa moist History and Physical Notes * HPI (History of Present Illness) Category Sub-Category Detail Notes Depression Screening PHQ-9 Little inte rest or [...] patient have a vision impairmen t?: Yes ?If yes, what is the vision impairment?: Glasses Does the patient have a cognition impair ment?: No
--- OUTSIDE RECORDS SUMMARY | 2024-07-24 11:36 | XMS_ITS | Patient Health Record ---
Author Organization [facility] Address [address] [place] [address] Care Team Providers Care Plastics Scientist Name Role Phone Samuel Schuster MD Primary Care Provider Mat Russell Unavailable [phone] Reason For Referral No Information Encounters Encounter Location Date Provider Diagnosis [facility] [address] 11/30/2023 Mat Nieto Plan Of Treatment No Information Insurance Providers Payer Name Payer Address Payer Phone Subscriber Number Group Number Insured Name Patient Relationship to Insured Coverage Start Date Coverage End Date [facility] [id number] [address] [address] [place] [address] [phone] [id number] Megan Aguila Self - patient is the insured
--- OUTSIDE RECORDS SUMMARY | 2024-07-24 11:36 | XMS_ITS ---
Author Name [facility] Organization Unknown History of Medication Use Medication Directions Dispensed Refills Start Date End Date Stat us atorvastatin 40 mg tablet TAKE 1 TABLET BY MOUTH EVERY DAY FOR 90 DAYS 10/25/2023 completed meloxicam 15 mg tablet TAKE 1 TABLET BY MOUTH EVERY DAY FOR 30 DAYS 10/25/2023 active estradiol 0.01% (0.1 mg/gram) vaginal cream INSERT 1 GRAM PER VAGINAL THREE TIME PER WEEK FOR 90 DAYS 10/25/2023 completed hydroxyzine HCl 25 mg tablet TAKE 1 TABLET BY MOUTH EVERYDAY AT BEDTIME 10/25/2023 completed Allergies Allergen Reaction Severity Comment Documented Date Source Statu s PENICILLINS ENS_AONECT Problems Problem Status Onset Date Problem Type Date of Resoluti on Source Contusion of right knee active 2023-10-23 ProblemAct ENS_AONECT
--- OUTSIDE RECORDS SUMMARY | 2024-07-24 11:36 | XMS_ITS | Data Portability ---
Author Organization [facility] Barbara Rojas AONE [facility] Address [address] [place] [address] Care Team Providers Care Beamer Operator Name Role Phone ABA STEPHENS Referring Provider LUPE STEPHENS Primary Care Provider Assessment Encounter Date Assessment Date Assessment LastModified by Organization Details LastModified Time 10/23/2023 10/23/2023 Symptoms are consistent with a patellar contusion. We reviewed the x-rays together on the computer. There was no evidence of any patellar fracture and her tenderness was more focal over the patellar tendon, but slightly over the patella. Aggravating alleviating factors were discussed. I would expect her symptoms to continue to improve. She continue with oyso-qfh-sjtvs er anti-inflammat ories or try Voltaren gel. After discussion, she is more optimistic and plans to continue with her planned trip. She will follow-up on an as-needed basis. All questions answered to her satisfaction. [email or web address] Not available 10/23/2023 11:37:58 Plan of Treatment Reminders Order Date Submit Date Provider Last Modified By Organization Details Last Modified Time Details Appointments None record ed. Lab None record ed. Referral None record ed. Procedures None record ed. Surgeries None record ed. Imaging XR, knee, 4 or more view 024 10/23/19 24 [email or web address] 1 [facility], [address], [place], [address], 13:14:20 Medication Orders None record ed. Patient TargetsNo targets recorded. Patient Instructions Encounter Date Encounter Id Patient Instructions Last Modified By Organization Details Last Modified Time 10/23/2023 [id number] Radiographs: 4 views of {{the Left the Right* Both}} knee(s) were obtained in the {{Fate* Lizandro} } office on {{ 10/23/2023#}} including AP, Buckley, lateral (weightbearing), and sunrise. X-rays demonstrated {{normal* mildly decreased}} bony mineralization. Joint spaces {{well-maintained* decrease medially decreased Laterally decrease d patellafemoral space decreased medial and lateral decreased medial and patellafemoral dec reased lateral and patellafemoral dec reased all compartments}} {{. subchondral sclerosis, tibial spiking and osteophytosis.}} No evidence of acute injury or fracture. Findings: {{Normal* Osteoart hritis Mild Osteoarthritis Mod erate Osteoarthritis Sev ere Endstage Osteoarthritis}} {{Right Knee* Left Knee Both Knees}}. X-ray interpretation by: Antwan Pham PA-C Not available 10/23/2023 11:38:18 Reason for Referral None Reported. Problems Name Problem SNOMED Code Status Onset Date Resolution Date Notes Provider Name and Address Organization Details Recorded Time Contusion of right knee 53771980239058 104 Active 2023 ANTWAN PHAM PA-C [address], [place], [address] , [place] [facility] [place] 11:36:53 Problem Notes None recorded. Medical Equipment None Reported. Allergies Allergen ID Allergen Name Allergen Category Reaction Reaction Severity Criticality Documentation Date Start Date Code Code System Note Provider Name and Address Organization Details Recorded Time 16581 Medicinal product containin g penicilli n and acting as antibacte rial agent (product) medicatio n Not available Not available Not available 10/23/2023 36006 05 SNOMED Hayley Galan [facility], [place] [facility] [place] 10:56:50 Medications Name Sig Start Date Stop Date Status Note LastModified by Organization Details LastModified Time atorvastati n 40 mg tablet TAKE 1 TABLET BY MOUTH EVERY DAY FOR 90 DAYS 10/22 completed Not Available Not Available Not Available meloxicam 15 mg tablet TAKE 1 TABLET BY MOUTH EVERY DAY FOR 30 DAYS active Not Available Not Available No t Available hydroxyzine HCl 25 mg tablet TAKE 1 TABLET BY MOUTH EVERYDAY AT BEDTIME 10/22 completed Not Available Not Available Not Available estradiol 0.01% (0.1 mg/gram) vaginal cream INSERT 1 GRAM PER VAGINAL THREE TIME PER WEEK FOR 90 DAYS 10/22 completed Not Available Not Available Not Available Vitals Date Recorded Body height Body mass index (BMI) Body weight Provider Name and Address Organization Details Last Updated DateTime 10/23/2023 177.8 cm 21.5 kg/m2 [address].[address] [place] [facility] [place] 10/23/2023 10:57:37 Social History Question Answer Notes LastModified by Organizat ion Details LastModified Time Tobacco Smoking Status Never Smoker Hayley Galan [facility], [place] [facility] [place] 10/23/2023 10:57:46 What Is Your Level Of Alcohol Consumption? Occasional [email or web address] Information not available 10/23/2023 Do You Use Any Illicit Or Recreational Drugs? No [email or web address] Information not available 10/23/2023 Do You Or Have You Ever Used Any Other Forms Of Tobacco Or Nicotine? No [email or web address] Information not available 10/23/2023 Sex: Unknown Functional Status None recorded. Mental Status None recorded. Family History Nothing Reported. Medical History No medical history recorded. Gynecological HistoryNo gynecological history recorded. Obstetrics History GPAL:G 0 P 0 0 0 0 Past Encounters Encounter ID Performer Location Encounter Start Date Encounter Closed Date Diagnosis/Indication Diagnosis SNOMED-CT Code Diagnosis ICD10 Code [id number] Marcos Ruiz MD [facility] [address] [place] [phone] 10/23/2023 10:39:08 10/23/2023 11:35:59 Pain of right knee joint 8702112583 98512 M25.561 Contusion of right knee 0905251123 2920940 S80.01XA Health Concerns Section Related Observation LastModified by Organization Detai ls LastModified Time None Recorded Concern Status LastModified by Organization Details LastModified Time None Recorded Advance Directives Directive None Recorded Payers Encounter Date Sequence Insurance Name Policy Number Policy Ball Covered Member ID Ball Member ID Guarantor Name 10/23/2023 1 [facility] [id number] Megan Aguila [id number] Megan Aguila Notes Date Note Type Note Provider Name and Address Organization Details Recorded Time 10/23/2023 text/html Patient is a 58-year-old female who presents today with right knee pain. Last week she was walking and struck her knee on a hope chest. She had discomfort in her knee and was hoping it would improve. Reports she has had difficulty kneeling because of her symptoms. She is going on a bike trip to [place] and presents today for urgent care evaluation. No numbness or tingling. No swelling. No bruising. Her only complaint is difficulty kneeling. She did like in the gym and had no problems. She did do Google search which told her she might have a patellar fracture. ANTWAN PHAM PA-C [address], [place], [address], [place] [facility] [place] 10/23/2023 11:38:45 OBGyn Episode No OBEpisode recorded.
--- OUTSIDE RECORDS SUMMARY | 2024-07-24 11:36 | XMS_ITS | Patient Health Record ---
Author Organization [facility] Address [address] [place] [address] Care Team Providers Care Clerk Supervisor Name Role Phone Landen MARQUES, Samuel Primary Care Provider Bry Tate Unavailable [phone] ALLERGIES Allergen (clinical drug ingredient) Drug/Non Drug Allergy documented on EMR Reaction Allergy Type Onset Date Status Penicillin hives Drug Allergy Active REASON FOR REFERRAL No Information MEDICATIONS Medication SIG (Take, Route, Fr equency, Duration) Notes Start Date End Date Status Vitamin E Active Vitamin D Active Vitamin B Complex Ac tive Multivitamin & Mineral Active Fish Oil Active IMMUNIZATIONS Vaccine Route Administration Date Status Comme nts Influenza Unknown 08/03/2022 Refused SOCIAL HISTORY Tobacco Use: Social History Observation Description Date Details (start date - stop date) Never Smoker NA - NA Sex Assigned At : Social History Observation Description Sex Assigned At Unknown Tobacco Use/Smoking Question Answer Notes Patient is a nonsmoker Alcohol Screen Question Answer Notes Did you have a drink contain ing alcohol in the past year? Yes How often did you have a dri nk containing alcohol in the past year? 2 to 3 times a week (3 points) How many drinks did you have on a typical day when you were drinking in the past year? 1 or 2 drinks (0 point) How often did you have 6 or more drinks on one occasion in the past year? Never (0 point) Points 3 Interpretation Positive PROBLEMS Problem Type ICD Code Onset Dates Problem Status W/U Status Risk SNOMED Code Notes Problem Encounter for screening for malignant neoplasm of colon (Z12.11) Active confirmed 947510893 Problem Preprocedural examination (Z01.818) Active confirmed 388713731 Problem Hx of adenomatous colonic polyps (Z86.010) Active confirmed 951864281 Problem Colon cancer screening (Z12.11) Active confirmed 313929223 Problem Diverticulosis of large intestine without perforation or abscess without bleeding (K57.30) Active confirmed Diverticul ar disease of colon (788930691) PLAN OF TREATMENT Future Test Test Name Order Date COLONOSCOPY 02/08/2017 COLONOSCOPY 08/03/2022 Next Appt Details Provider Name:Bry Ritter Madeline , 10/02/2024 09:40:00 AM, [address] [place] [address], [address], [place], [address], Insurance Providers Payer Name Payer Address Payer Phone Subscriber Number Group Number Insured Name Patient Relationship to Insured Coverage Start Date Coverage End Date [facility] [address] [address] [place] [id number] GUI SORIA Self - patient is the insured MEDICAL (GENERAL) HISTORY Medical History History ICD Code Denies [place],DM,CVA,Lung disease,renal dise ase Elevated cholesterol Plantar fascitis Screening colonoscopy in Apr with removal of several small tubular adenomas Surgical History Surgery Date(Month/Year) Laser ablation of cervix around 2006
[2024-07-24 12:21] LABS: Alanine Aminotransferase 25 U/L (0-31); Albumin Level 3.9 g/dL (3.5-5.0); Alkaline Phosphatase 64 U/L (39-117); Aspartate Amino Transferase 30 U/L (5-31); Bilirubin Direct 0.2 mg/dL (0.0-0.5); Bilirubin Total 0.5 mg/dL (0.0-1.0); Cholesterol 183 mg/dL (<200); HDL Cholesterol 74 mg/dL (>40); LDL Cholesterol Calculated 94 mg/dL (<100); Total Protein 6.2 g/dL (6.5-8.0); Triglycerides 76 mg/dL (<150)
== END 2024-07-24 10:54 | disposition home or self-care (01) ==
LOC: HO.LNP 10:53
PROVIDERS: Visit Provider Internal Medicine
DX: R06.83 Snoring (principal)
CPT/HCPCS: 80061; 80076

== ENCOUNTER 2025-03-26 10:31 | Outpatient (REF) | payer OTHER, SELFPAY ==
--- OUTSIDE RECORDS SUMMARY | 2023-12-21 06:30 | XMS_ITS ---
Author Organization [facility] Address [address] [place] [phone] Care Team Providers Care Residential Insurance Inspector Name Role Phone Landen MARQUES, Samuel Primary Care Provider Mat Russell [phone] Encounters Encounter Location Date [facility] [address] [place] [phone] 12/21/2023 Mat Nieto Plan Of Treatment No Information Progress Notes * Reena AGUILAOB:1965 (59 yo F)Acc No.[id number]:12/21/2023 Progress Notes Patient: Megan SALGUERO Provider: Sade Nieto DPM :1965 A ge:58 Y S ex:Female Date:12/21/2023 Address:[address] [place], [place] [phone] Pcp:Samuel Schuster MD Subjective: * Chief Complaints: * * Medical History: Objective: * Vitals: Assessment: Plan: * Treatment: * Images: * The named appointment provid er may or may not be the originator of this progress note, and it is not deemed complete until electronically signed by the appointment provider. Sign off status: Pending * Provider: Sade Nieto DPM Date: 0 12/21/2023 Generated for Brandie leong/Vicki/eTransmitting on: 0 03/26/2025 11:56 AM EDT
--- OUTSIDE RECORDS SUMMARY | 2023-12-28 05:30 | XMS_ITS ---
Author Organization [facility] Address [address] [place] [phone] Care Team Providers Care Banking And Finance Instructor Name Role Phone Landen MARQUES, Samuel Primary Care Provider Mat Russell [phone] Encounters Encounter [facility] Date [facility] [address] [place] [phone] 12/28/2023 Mat Nieto Plan Of Treatment No Information Progress Notes * Reena AGUILAOB:1965 (59 yo F)Acc No.[id number]:12/28/2023 Progress Notes Patient: Megan SALGUERO Provider: Sade Nieto DPM :1965 A ge:58 Y S ex:Female Date:12/28/2023 Address:[address] [place], [place] [phone] Pcp:Samuel Schuster MD Subjective: * Chief Complaints: * * Medical History: Objective: * Vitals: Assessment: Plan: * Treatment: * Images: * The named appointment provid er may or may not be the originator of this progress note, and it is not deemed complete until electronically signed by the appointment provider. Sign off status: Pending * Provider: Sade Nieto DPM Date: 0 12/28/2023 Generated for Brandie leong/Vicki/eTransmitting on: 03/26/2025 11:57 AM EDT
--- OUTSIDE RECORDS SUMMARY | 2024-04-07 10:30 | XMS_ITS ---
Author Organization Samuel Schuster MD Address [address] [place] [phone] Care Team Providers Care Keycase Assembler Name Role Phone Samuel Schuster Primary Care Provider [phone] Allergies Allergen (clinical drug ingredient) Drug/Non Drug Allergy documented on EMR Reaction Allergy Type Onset Date Status Penicillin (uncoded) hives Allergy Active REASON FOR VISIT ANNUAL EXAM/ must see cholesterol Medications Medication SIG (Take, Route, Frequency, Duration) Notes Start Date End Date Status Diprolene AF 0.05 % 1 application Externally Once a day for 30 days 11/24/2019 Not-Taking Nystatin 022880 UNIT/GM 1 application to affected area Externally Twice a day for 14 days 11/21/2016 Not-Taking Advil PM 200-25 MG 2 capsules at bedtim e as needed Orally Once a day for 30 day(s) Not-Taking traZODone HCl 50 MG 1 tablet at bedtime as needed Orally Once a day for 30 day(s) 04/07/2024 Active traZODone HCl 50 MG 1 tablet at bedtime as needed Orally Once a day for 90 days 04/07/2024 Active Atorvastatin Calcium 40 MG 1 tablet Orally Once a day for 90 days 04/07/2024 Active Immunizations Vaccine Route Administration Date Status Comme nts Fluarix Quadrivalent - 150 Unknown 04/07/2024 Refused Social History Tobacco Use: Social History Observation Description Date Details (start date - stop date) Never Smoker NA - NA Tobacco Use/Smoking Question Answer Notes Patient is a nonsmoker Additional Findings: Tobacco Non-User Cu rrent non-smoker, currently using no form of tobacco Alcohol Screen Question Answer Notes Did you have a drink contain ing alcohol in the past year? Yes How often did you have a dri nk containing alcohol in the past year? 2 to 4 times a month (2 points) How many drinks did you have on a typical day when you were drinking in the past year? 1 or 2 drinks (0 point) How often did you have 6 or more drinks on one occasion in the past year? Never (0 point) Points 2 Interpretation Negative Problems Problem Type SNOMED Code ICD Code Onset Dates Problem Status W/U Status Risk Notes Problem 8704365 Primary insomnia (F51.01) Active confirmed Vital Signs Blood pressure systolic 98 mm Hg 04/07/20 24 Blood pressure diastolic 60 mm Hg 024 Height 70 in 04/07/2024 Weight 148 lbs 04/07/2024 BMI 21.23 kg/m2 04/07/2024 weight is down 6 pounds [facility] e 08-09-23 Encounters Encounter Location Date Provider Diagnosis Samuel Schuster MD [address] [place] [address] [place] [phone] 04/07/2024 Samuel Schuster Lymphocytosis D72.82 0 ; Annual physical exam Z00.00 ; Hypercholesterolemia E78.00 ; Elevated LDL cholesterol level E78.00 and Primary insomnia F51.01 Assessments Encounter Date Diagnosis (ICD Code) Assessment Notes Treatment Notes Treatment Clinical Notes Section Notes 04/07/2024 Lymphocytosis (ICD-1 0 - D72.820) stable, will continue to monitor 04/07/2024 Annual physical exam (ICD-10 - Z00.00) labs reviewed and discussed with patient 04/07/2024 Hypercholesterolemia (ICD-10 - E78.00) has agreed to go back on meds, vrbaluizd understanding of mdication and diretion for use. 04/07/2024 Elevated LDL cholesterol level (ICD-10 - E78.00) 04/07/2024 Primary insomnia (ICD-10 - F51.01) Plan Of Treatment Medication Medication Name Sig Start Date Stop Date Notes traZODone HCl 50 MG 1 tablet at bedtime as needed Orally Once a day for 30 day(s) 04/07/2024 traZODone HCl 50 MG 1 tablet at bedtime as needed Orally Once a day for 90 days 04/07/2024 Atorvastatin Calcium 40 MG 1 tablet Oral ly Once a day for 90 days 04/07/2024 Treatment Notes Assessment Notes Lymphocytosis stable, will continu e to monitor Annual physical exam labs reviewed and d iscussed with patient Hypercholesterolemia has agreed to go [place] on meds, nain understanding of mdwillard and diretion for use. Next Appt Details Follow Up: 3 Months, Reason: Provider Name:Samuel Wylie ier, 04/10/2025 08:30:00 AM, [address] [place] [address], [address], [place], [place], [phone], Progress Notes * GUI SORIA EDOB: 3 (58 yo F)Acc No.[id number]:04/07/2024 Progress Notes Patient: GUI SALGUERO Provider: Saadia Schuster MD :1965 A ge:58 Y S ex:Female Date:04/07/2024 Address: [address], [place], [id number] Subjective: * Chief Complaints: * A NNUAL EXAM/ must see cholesterol * HPI: D epression Screening: PHQ-9 L ittle interest or pleasure in doing things N ot at all, F eeling down, depressed, or hopeless N ot at all, T rouble falling or staying asleep, or sleeping too much N ot at all, F eeling tired or having little energy N ot at all, P oor appetite or overeating N ot at all, F eeling bad about yourself or that you are a failure, or have let yourself or your family down N ot at all, T rouble concentrating on things, such as reading the newspaper or watching television N ot at all, M oving or speaking so slowly that other people could have noticed; or the opposite, being so fidgety or restless that you have been moving around a lot more than usual N ot at all, T houghts that you would be better off or of hurting yourself in some way N ot at all, T otal Score 0 . I nterpretation and Intervention D epression Screening Findings N egative, F ollow-Up for Depression : review of PHQ-9 found negative result, no follow-up needed. S EDITH Questions: SDOH Questions I n the past year have you been worried about losing housing? N o, I n the past year have you or any family members you live with been unable to get any of the following when it was really needed? Check all that apply: N one. C ommunication Needs: Communication Needs D oes the patient have a hearing impairment N o, D oes the patient have a vision impairment? Y es, I f yes, what is the vision impairment? G lasses, D oes the patient have a cognition impairment? N o. S ymptom(s): patient is a 58 yo female here for [facility] review of recent labs and follow up of chronis issues, stopped statins because friends told her to do it with diet. * ROS: G eneral/Constitutional: Patient denies f atigue , headache. C hange in appetite?denies. C hills d enies. F ever d enies. O phthalmologic: Blurred vision d enies. D ischarge d enies. P ain d enies. E NT: Patient denies d ecreased sense of smell , any loss of taste , sore throat. D ecreased hearing d enies. S ore throat d enies. S wollen glands d enies. E ndocrine: Cold intolerance d enies. E xcessive thirst d enies. H eat intolerance d enies. W eight loss d enies. R espiratory: Cough d enies. S hortness of breath at rest d enies. S hortness of breath with exertion d enies. W heezing d enies. C ardiovascular: Chest pain at rest d enies. C hest pain with exertion?denies. I rregular heartbeat d enies. S hortness of breath d enies. ? G astrointestinal: Abdominal pain d enies. C hange in bowel habits d enies. D iarrhea d enies. N ausea d enies. R ectal bleeding d enies. V omiting d enies . G enitourinary: Blood in urine d enies. D ifficulty urinating d enies. F requent urination d enies. U rinary incontinence D enies. M usculoskeletal: Patient denies m uscle aches. P ainful joints d enies. W eakness d enies. P eripheral Vascular: Patient denies r ed and blue toes. S kin: Dry skin d enies. I tching d enies. D enies?Mole(s), changes in moles, new moles or any lesions of concern. D enies P hotosensitivity. R hung d enies. N eurologic: Dizziness d enies. F ainting d enies. H eadache?denies. * Medical History: * Surgical History: * Hospitalization/Major Diagno stic Procedure: * Family History: F ather: 76 yrs, pneumonia, diagnosed with Alzheimer disease. M other: alive 81 yrs, arthritis. 2 sister(s) - healthy. . Mother- Healthy no family history of mental illness or drug abuse, Denies mental health/substance abuse family history, Denies mental health/substance abuse family history, Denies mental health/substance abuse family history. * Social History: T obacco Use: T obacco Use/Smoking P atient is a n onsmoker, A dditional Findings: Tobacco Non-User C urrent non-smoker, currently using no form of tobacco. D rugs/Alcohol: A lcohol Screen D id you have a drink containing alcohol in the past year? Y es, H ow often did you have a drink containing alcohol in the past year? 2 to 4 times a month (2 points), H ow many drinks did you have on a typical day when you were drinking in the past year? 1 or 2 drinks (0 point), H ow often did you have 6 or more drinks on one occasion in the past year? N ever (0 point), P oints 2 , I nterpretation N egative. M iscellaneous: C affeine: yes, frequency:, 1-2 cups per day. no Children. no Community involvements. Exercise: yes, gym weights biking. no Home smoke detector use. Living with: alone. Marital status: . Occupation: works full-time. Pets: none. Travel outside of the [place]: yes, [place]. * Medications: N ot-Taking/PRNAdvil PM 200-25 MG Capsule 2 capsules at bedtime as needed Orally Once a dayDiprolene AF 0.05 % Cream 1 application Externally Once a dayNystatin 630616 UNIT/GM Cream 1 application to affected area Externally Twice a dayNot- Taking/PRN Advil PM 200-25 MG Capsule 2 capsules at bedtime as needed Orally Once a dayNot-Taking/PRN Diprolene AF 0.05 % Cream 1 application Externally Once a dayNot-Taking/PRN Nystatin 040602 UNIT/GM Cream 1 application to affected area Externally Twice a dayDiscontinuedUnisom SleepTabs 25 MG Tablet 1 tablet at bedtime as needed Orally Once a dayMeloxicam 15 MG Tablet 1 tablet Orally Once a dayAtorvastatin Calcium 40 MG Tablet 1 tablet Orally Once a dayMedication List reviewed and reconciled with the patientDiscontinued Unisom SleepTabs 25 MG Tablet 1 tablet at bedtime as needed Orally Once a dayDiscontinued Meloxicam 15 MG Tablet 1 tablet Orally Once a dayDiscontinued Atorvastatin Calcium 40 MG Tablet 1 tablet Orally Once a dayMedication List reviewed and reconciled with the patient * Allergies: P enicillin: hivesyes[Allergies Verified] Objective: * Vitals: H t: 70, Wt:148, BMI:21.23, BP:98/60 weight is down 6 pounds since 08-09-23. * P ast Orders: L ab:Lipid Panel (Order Date - 03/31/2024) (Collection Date - 03/31/2024) Value Reference Range Triglycerides 69 <150 - mg/dL Cholesterol 254 H <200 - mg/dL LDL Cholesterol Calculated 168 H <100 - mg/dL HDL Cholesterol 73 >40 - mg/dL L ab:UA ClnCatch+Micro w/rflx Cult (Order Date - 03/31/2024) (Collection Date - 03/31/2024) Value Reference Range Color Urine Yellow - Appearance Urine Clear - PH 6.5 5.0-9.0 - Glucose Urine UA Negative Negative - mg/dL Urine Blood Negative Negative - Specific [place] - Urine 1.010 1.005-1.025 - Urine Protein Negative Neg-Trace - mg/dL Urine Ketones Negative Negative - mg/dL Nitrite Urine Negative Negative - Leukocyte Esterase Urine Negative Negative - RBC Urine 0-2 0-2 - /HPF WBC Urine 0-5 0-5 - /HPF Squamous Epithelial Cell Urine 0-2 0-2 - /HP F Bacteria Urine None Seen None Seen - Hyaline Casts Urine 0-2 0-2 - /LPF L ab:Complete Blood Count Auto Diff (Order Date - 03/31/2024) (Collection Date - 03/31/2024) Value Reference Range White Blood Count 4.6 L 4.8-10.8 - X10*3/uL Red Blood Count 4.44 4.20-5.50 - X10*6/uL Hemoglobin 13.1 12.0-16.0 - g/dl Hematocrit 40.2 37.0-47.0 - % Mean Corpuscular Volume 90.5 80.0-98.0 - fL Mean Corpuscular Hemoglobin 29.5 27.0-33.0 - pg Mean Corpuscular HGB Conc 32.6 31.0-35.0 - g/ dl Red Cell Distribution Width 14.5 11.0-16.0 - % Platelet Count 305 160-400 - X10*3/uL Mean Platelet Volume 9.8 9.4-12.3 - fL Neutrophils Percent Auto 45.2 45-73 - % Imm Gran Pct Auto 0.2 0.0-0.4 - % Lymphocytes Percent Auto 47.3 H 20-40 - % Monocytes Percent Auto 6.6 2-11 - % Eosinophils Percent Auto 0.0 0-4 - % Basophils Percent Auto 0.7 0-2 - % NRBC Pct Auto 0.0 0.0-0.2 - /100WBC Neutrophils Absolute Auto 2.1 2.0-8.3 - x10* 3/uL Imm Gran Abs Auto 0.01 0.00-0.03 - X10*3/uL Lymphocytes Absolute Auto 2.2 1.2-4.9 - X10* 3/uL Monocytes Absolute Auto 0.3 0.1-1.2 - X10*3/ uL Eosinophils Absolute Auto 0.0 0.0-0.4 - X10* 3/uL Basophils Absolute Auto 0.0 0.0-0.2 - X10*3/ uL NRBC Abs Auto 0.000 0.0-0.012 - X10*3/uL L ab:Comprehensive [place]. Panel Fast (Order Date - 03/31/2024) (Collection Date - 03/31/2024) Value Reference Range Sodium 138 135-145 - mmol/L Bilirubin Total 0.4 0.0-1.0 - mg/dL Aspartate Amino Transferase 16 5-31 - U/L Alanine Aminotransferase 13 0-31 - U/L Total Protein 6.0 L 6.5-8.0 - g/dL Albumin Level 3.7 3.5-5.0 - g/dL Alkaline Phosphatase 60 39-117 - U/L Potassium 3.9 3.3-5.1 - mmol/L Chloride 106 96-108 - mmol/L Carbon Dioxide 25 22-29 - mmol/L Anion Gap 11 L 12-20 - Blood Urea Nitrogen 13 9-16 - mg/dL Creatinine 0.71 0.5-1.4 - mg/dL Estimated Glomerular Filt Rate > 60 - Glucose Fasting 86 60-99 - mg/dL Calcium 8.9 8.4-10.2 - mg/dL * Examination: G eneral Examination: GENERAL APPEARANCE: w ell developed, well nourished, in no acute distress. HEAD: n ormocephalic, atraumatic. EYES: p upils equal, round, reactive to light and accommodation, sclera non-icteric. EARS: n ormal. ORAL CAVITY: m ucosa moist. THROAT: c lear. NECK/THYROID: n ronnie supple, full range of motion, no cervical lymphadenopathy, no bruits. SKIN: w arm and dry, no suspicious lesions. HEART: r egular rate and rhythm, S1, S2 normal, no murmurs.? LUNGS: c lear to auscultation bilaterally. BREASTS: N o mass, no lump. ABDOMEN: s oft, nontender, nondistended, bowel sounds present, normal, no organomegaly , no masses palpable. RECTAL EXAM: d one by home health outreach coordinator. FEMALE GENITOURINARY: d one by home health outreach coordinator. EXTREMITIES: n o clubbing, cyanosis, or edema. NEUROLOGIC: n onfocal, motor strength normal upper and lower extremities, sensory exam intact. Assessment: * Assessment: 1. A nnual physical exam - Z00.00 (Primary) 2 . L ymphocytosis - D72.820 3 . H ypercholesterolemia - E78.00 4 . E levated LDL cholesterol level - E78.00 5 . P rimary insomnia - F51.01 Plan: * Treatment: 2. L ymphocytosis Notes: stable, will continue to monitor 3. H ypercholesterolemia Start Atorvastatin Calcium Tablet, 40 MG, 1 tablet, Orally, Once a day, 90 days, 90 Tablet, Refills 3. Notes: has agreed to go back on meds, vrbaluizd understanding of mdication and diretion for use. ? 4. P rimary insomnia Start traZODone HCl Tablet, 50 MG, 1 tablet at bedtime as needed, Orally, Once a day, 30 day(s), 30, Refills 4; S tart traZODone HCl Tablet, 50 MG, 1 tablet at bedtime as needed, Orally, Once a day, 90 days, 90 Tablet, Refills 3. * Immunizations: Fluarix Quadrivalent - 150 (Not administered - Refused: Patient decision) * Procedure Codes: * Follow Up: 3 Months * * Sign off status: Completed true * Provider: Saadia Schuster MD Date: 0 04/07/2024 Generated for Brandie leong/Vicki/Carlositting on: 03/26/2025 11:56 AM EDT History and Physical Notes * HPI (History of Present Illness) Category Sub-Category Detail Notes Category Not es Symptom(s) patient is a 58 yo female here for [facility] review of recent labs and follow up of chronis issues, stopped statins because friends told her to do it with diet Depression Screening PHQ-9 Little inte rest or pleasure in doing things: Not at all Feeling down, depressed, or hopeless: No t at all Trouble falling or staying asleep, or sl eeping too much: Not at all Feeling tired or having little energy: N ot at all Poor appetite or overeating: Not at all Feeling bad about yourself o r that you are a failure, or have let yourself or your family down: Not at all Trouble concentrating on thi ngs, such as reading the newspaper or watching television: Not at all Moving or speaking so slowly that other people could have noticed; or the opposite, being so fidgety or restless that you have been moving around a lot more than usual: Not at all Thoughts that you would be b darian off or of hurting yourself in some way: Not at all Total Score: 0 Interpretation and Intervention Depression Desiree powell Findings: Negative Follow-Up for Depression: : review of PH Q-9 found negative result, no follow-up needed SDOH Questions SDOH Questions In the past year have you been worried about losing housing?: No In the past year have you or any family members you live with been unable to get any of the following when it was really needed? Check all that apply:: None Communication Needs Communication Needs Does the patient have a hearing impairment: No Does the patient have a vision impairmen t?: Yes If yes, what is the vision impairment?: Glasses Does the patient have a cognition impair ment?: No Examination Category Sub-Category Detail Notes Category Not es General Examination GENERAL APPEARANCE: well dev eloped, well nourished, in no acute distress HEAD: normocephalic, atrau matic EYES: pupils equal, round, reactive to light and accommodation, sclera non-icteric EARS: normal THROAT: clear NECK/THYROID: neck supple, full ra nge of motion, no cervical lymphadenopathy, no bruits HEART: regular rate and rhy thm, S1, S2 normal, no murmurs LUNGS: clear to auscultatio n bilaterally ABDOMEN: soft, nontender, non distended, bowel sounds present, normal, no organomegaly , no masses palpable NEUROLOGIC: nonfocal, motor stre ngth normal upper and lower extremities, sensory exam intact SKIN: warm and dry, no dpiti picious lesions EXTREMITIES: no clubbing, cyanosi s, or edema BREASTS: No mass, no lump RECTAL EXAM: done by home health outreach coordinator FEMALE GENITOURINARY: done by home health outreach coordinator ORAL CAVITY: mucosa moist
--- OUTSIDE RECORDS SUMMARY | 2024-06-23 07:15 | XMS_ITS ---
Author Organization Samuel Schuster MD Address [address] [place], [place] [id number] Care Team Providers Care Manager Local Name Role Phone Samuel Schuster Primary Care Provider Allergies Allergen (clinical drug ingredient) Drug/Non Drug Allergy documented on EMR Reaction Allergy Type Onset Date Status Penicillin (uncoded) hives Allergy Active REASON FOR VISIT lump on left hip x 30 years getting bigger Medications Medication SIG (Take, Route, Frequency, Duration) Notes Start Date End Date Status Diprolene AF 0.05 % 1 application Externally Once a day for 30 days 11/24/2019 Not-Taking Advil PM 200-25 MG 2 capsules at bedtim e as needed Orally Once a day for 30 day(s) Not-Taking traZODone HCl 50 MG TAKE 1 TABLET BY MELODY EVERY DAY AT BEDTIME NEEDED FOR 30 DAYS for 90 Not-Taking Atorvastatin Calcium 40 MG 1 tablet Orally Once a day for 90 days 04/07/2024 Active Nystatin 289703 UNIT/GM 1 application to affected area Externally Twice a day for 14 days 11/21/2016 Not-Taking Vital Signs Blood pressure systolic 102 mm Hg 06/23/20 24 Blood pressure diastolic 64 mm Hg 024 Height 70 in 06/23/2024 Weight 155 lbs 06/23/2024 BMI 22.24 kg/m2 06/23/2024 weight is up 7 pounds since 04-07-24 Encounters Encounter Location Date Provider Diagnosis Samuel Schuster MD [address] [place] [address] [address] [place], [place] [phone] 06/23/2024 Samuel Schuster Lipoma of hip D17.20 Assessments Encounter Date Diagnosis (ICD Code) Assessment Notes Treatment Notes Treatment Clinical Notes Section Notes 06/23/2024 Lipoma of hip (ICD-10 - D17.20) appears most consistant with a lipoma and has been there for 30 years. would recommend just watching it. Plan Of Treatment Treatment Notes Assessment Notes Lipoma of hip appears most consist ant with a lipoma and has been there for 30 years. would recommend just watching it. Next Appt Details Provider Name:Samuel Wylie ier, 04/10/2025 08:30:00 AM, [address] [facility], [address], [place], [place], [phone], Progress Notes * GUI SORIA EDOB: 3 (59 yo F)Acc No.[id number]:06/23/2024 Progress Notes Patient: GUI SALGUERO Provider: Saadia Schuster MD :1965 A ge:59 Y S ex:Female Date:06/23/2024 Address:[address] [place] [address], [facility] Subjective: * Chief Complaints: * L ump on left hip x 30 years getting bigger * HPI: S ymptom(s): patient is a 59 yo female here with complaint of lump of left hip, has been therre for 30 years is now getting bigger. * ROS: G eneral/Constitutional: Denies C hills. D enies F atigue. D enies F ever. D enies H eadache. E NT: Patient denies d ecreased sense of smell , any loss of taste , sore throat. D enies S ore throat. R espiratory: Denies C ough. D enies S hortness of breath at rest. D enies S hortness of breath with exertion. G astrointestinal: Denies D iarrhea. D enies N ausea. M usculoskeletal: Patient denies m uscle aches. P eripheral Vascular: Patient denies r ed and blue toes. * Medical History: * Surgical History: * Hospitalization/Major Diagno stic Procedure: * Medications: T akingAtorvastatin Calcium 40 MG Tablet 1 tablet Orally Once a dayTaking Atorvastatin Calcium 40 MG Tablet 1 tablet Orally Once a dayNot-Taking/PRNtraZODone HCl 50 MG Tablet TAKE 1 TABLET BY MOUTH EVERY DAY AT BEDTIME NEEDED FOR 30 DAYS Advil PM 200-25 MG Capsule 2 capsules at bedtime as needed Orally Once a dayDiprolene AF 0.05 % Cream 1 application Externally Once a dayNystatin 072185 UNIT/GM Cream 1 application to affected area Externally Twice a dayMedication List reviewed and reconciled with the patientNot-Taking/PRN traZODone HCl 50 MG Tablet TAKE 1 TABLET BY MOUTH EVERY DAY AT BEDTIME NEEDED FOR 30 DAYS Not-Taking/PRN Advil PM 200-25 MG Capsule 2 capsules at bedtime as needed Orally Once a dayNot-Taking/PRN Diprolene AF 0.05 % Cream 1 application Externally Once a dayNot-Taking/PRN Nystatin 369694 UNIT/GM Cream 1 application to affected area Externally Twice a dayMedication List reviewed and reconciled with the patient * Allergies: P enicillin: hivesyes[Allergies Verified] Objective: * Vitals: H t: 70, Wt:155, BMI:22.24, BP:102/64 weight is up 7 pounds since 04-07-24. * Examination: G eneral Examination: GENERAL APPEARANCE: w ell developed, well nourished. MUSCULOSKELETAL: l eft hip with a 6 inch lipomatous mass that has been there since her 30's. Assessment: * Assessment: 1. L ipoma of hip - D17.20 (Primary) Plan: * Treatment: * Procedure Codes: * * Sign off status: Completed true * Provider: Saadia Schuster MD Date: 08/24/2023 Generated for Brandie leong/Vicki/eTransmitting on: 0 03/26/2025 11:57 AM EDT History and Physical Notes * HPI (History of Present Illness) Category Sub-Category Detail Notes Category Not es Symptom(s) patient is a 59 yo female here with complaint of lump of left hip, has been therre for 30 years is now getting bigger. Examination Category Sub-Category Detail Notes Category Not es General Examination GENERAL APPEARANCE: well developed , well nourished MUSCULOSKELETAL: left hip with a 6 in ch lipomatous mass that has been there since her 30's
--- OUTSIDE RECORDS SUMMARY | 2024-07-24 03:45 | XMS_ITS ---
Author Organization Samuel Schuster MD Address [address] [place], [place] [id number] Care Team Providers Care Sales Service Coordinator Name Role Phone Samuel Schuster Primary Care Provider [phone] Allergies Allergen (clinical drug ingredient) Drug/Non Drug Allergy documented on EMR Reaction Allergy Type Onset Date Status Penicillin (uncoded) hives Allergy Active Results Component Value Reference Range Notes Liver Panel Reviewed date:07/24/2024 12:51:51 PM Interpretation: Performing Lab:[facility], [address] [place] [phone] Notes/Report: Bilirubin Total 0.5 0.0-1.0 mg/dL Bilirubin Direct 0.2 0.0-0.5 mg/dL Aspartate Amino Transferase 30 5-31 U/L Alanine Aminotransferase 25 0-31 U/L Total Protein 6.2 6.5-8.0 g/dL Albumin Level 3.9 3.5-5.0 g/dL Alkaline Phosphatase 64 39-117 U/L Lipid Panel Reviewed date:07/24/2024 12:54:04 PM Interpretation: Performing Lab:[facility], [address] [place] [phone] Notes/Report: Triglycerides 76 <150 mg/dL Desirable Triglyceride: less than 150 mg/dL Borderline High Triglyceride 150-199 mg/dL High Triglyceride: 200-499 mg/dL Very High Triglyceride: greater than or equal to 5OO mg/dL Cholesterol 183 <200 mg/dL Desirable Cholesterol: less than 200 mg/dL Borderline High Cholesterol: 200-239 mg/dL High Cholesterol: greater than 239 mg/dL LDL Cholesterol Calculated 94 <100 mg/dL Desirable LDL: less than 100 mg/dL Near Optimal/Above Optimal LDL: 110-129 mg/dL Borderline High LDL: 130-159 mg/dL High LDL: 160-189 mg/dL Very High LDL: greater than or equal to 190 mg/dL HDL Cholesterol 74 >40 mg/dL Desirable HDL: greater than 40 mg/dL Note: This HDL assay may give artificially low results in patients with liver disease. REASON FOR VISIT 3 MO F/U Medications Medication SIG (Take, Route, Frequency, Duration) Notes Start Date End Date Status Diprolene AF 0.05 % 1 application Externally Once a day for 30 days 11/24/2019 Not-Taking Advil PM 200-25 MG 2 capsules at bedtim e as needed Orally Once a day for 30 day(s) Not-Taking traZODone HCl 50 MG TAKE 1 TABLET BY EVERY DAY AT BEDTIME NEEDED FOR 30 DAYS for 90 Not-Taking Atorvastatin Calcium 40 MG 1 tablet Orally Once a day for 90 days 04/07/2024 Active Nystatin 728157 UNIT/GM 1 application to affected area Externally Twice a day for 14 days 11/21/2016 Not-Taking Vital Signs Blood pressure systolic 98 mm Hg 07/24/19 25 Blood pressure diastolic 70 mm Hg 025 Height 70 in 07/24/2024 Weight 153 lbs 07/24/2024 BMI 21.95 kg/m2 07/24/2024 weight is down 2 pounds sin e 06-23-24 Encounters Encounter Location Date Provider Diagnosis aSmuel Schuster MD [address] [place], [place] [phone] 07/24/2024 Samuel Schuster Habitual snoring R06.83 and Elevated LDL cholesterol level E78.00 Assessments Encounter Date Diagnosis (ICD Code) Assessment Notes Treatment Notes Treatment Clinical Notes Section Notes 07/24/2024 Habitual snoring (ICD-10 - R06.83) to go back to sleep medicine to be reevaluated 07/24/2024 Elevated LDL cholesterol level (ICD-10 - E78.00) pending labs Plan Of Treatment Treatment Notes Assessment Notes Habitual snoring to go back to sleep medicine to be reevaluated Elevated LDL cholesterol level pending l abs Next Appt Details Provider Name:Samuel Wylie ier, 04/10/2025 08:30:00 AM, [address], [address], [place], [place], [phone], Progress Notes * GUI SORIA EDOB: 3 (59 yo F)Acc No.[id number]:07/24/2024 Progress Notes Patient: GUI SALGUERO Provider: Saadia Schuster MD :1965 A ge:59 Y S ex:Female Date:07/24/2024 Address:[address] [place] [address], [facility] Subjective: * Chief Complaints: * 3 MO F/U * HPI: S ymptom(s): patient is a 59 yo female here for 3 month follow up of cholesterol. has tinitus. * ROS: G eneral/Constitutional: Denies C hills. [...] Cream 1 application Externally Once a dayNystatin 973726 UNIT/GM Cream 1 application to affected area [...] 1 application Externally Once a dayNot-Taking/PRN Nystatin 231717 UNIT/GM Cream 1 application to affected area Externally Twice a dayMedication List reviewed and reconciled with the patient * Allergies: P enicillin: hivesyes[Allergies Verified] Objective: * Vitals: H t: 70, Wt:153, BMI:21.95, BP:98/70 weight is down 2 pounds since 06-23-24. * Examination: G eneral Examination: GENERAL APPEARANCE: a lert, well hydrated, in no distress.? HEAD: n ormocephalic. SKIN: g ood turgor. HEART: n o murmurs, rubs, gallops , regular rate and rhythm. LUNGS: n o wheezes, rales, rhonchi , good air movement , clear to auscultation bilaterally. Assessment: * Assessment: 1. H abitual snoring - R06.83 (Primary) 2 . E levated LDL cholesterol level - E78.00? Plan: * Treatment: 2. E levated LDL cholesterol level Notes: pending labs * Procedure Codes: 3 6415 VENIPUNCT, ROUTINE* * * Sign off status: Completed true * Provider: Saadia Schuster MD Date: 0 07/24/2024 Generated for Brandie leong/Vicki/Carlositting on: 0 03/26/2025 11:56 AM EDT History and Physical Notes * HPI (History of Present Illness) Category Sub-Category Detail Notes Category Not es Symptom(s) patient is a 59 yo female here for 3 month follow up of cholesterol. has tinitus Examination Category Sub-Category Detail Notes Category Not es General Examination GENERAL APPEARANCE: alert, w ell hydrated, in no distress HEAD: normocephalic HEART: no murmurs, rubs, ga llops , regular rate and rhythm LUNGS: no wheezes, rales, r honchi , good air movement , clear to auscultation bilaterally SKIN: good turgor
--- OUTSIDE RECORDS SUMMARY | 2024-10-09 03:15 | XMS_ITS ---
Author Organization Samuel Schuster MD Address [address] [place] [phone] Care Team Providers Care Kosher Inspector Name Role Phone Samuel Schuster Primary Care Provider REASON FOR VISIT FASTING LIPIDS Medications Medication SIG (Take, Route, Frequency, Duration) Notes Start Date End Date Status Atorvastatin Calcium 40 MG 1 tablet Oral ly Once a day for 90 days 04/07/2024 Unknown Diprolene AF 0.05 % 1 application Engineering Coordinator ally Once a day for 30 days 11/24/2019 Unknown Nystatin 048713 UNIT/GM 1 application to affected area Externally Twice a day for 14 days 11/21/2016 Unknown traZODone HCl 50 MG TAKE 1 TABLET BY MELODY TH EVERY DAY AT BEDTIME NEEDED FOR 30 DAYS for 90 Unknow n Advil PM 200-25 MG 2 capsules at bedtim e as needed Orally Once a day for 30 day(s) Unknown Encounters Encounter Location Date Provider Diagnosis Samuel Schuster MD [address] [place] [phone] 10/09/2024 Samuel Schuster Hypercholesterolemia E78.00 Assessments Encounter Date Diagnosis (ICD Code) Assessment Notes Treatment Notes Treatment Clinical Notes Section Notes 10/09/2024 Hypercholesterolemia (ICD-10 - E78.00) Plan Of Treatment Pending Test Test Name Order Date Liver Panel 10/09/2024 Lipid Panel with Reflex 10/09/2024 Next Appt Details Provider Name:Samuel Wylie ier, 04/10/2025 08:30:00 AM, [address] [place] [address], [address], [place], [place], [phone], Progress Notes * GUI SORIA EDOB: 3 (59 yo F)Acc No.[id number]:10/09/2024 Progress Note Patient: GUI SALGUERO Provider: Saadia Schuster MD :1965 A ge:59 Y S ex:Female Date:10/09/2024 Address:[address] [place] [address] , [facility] Subjective: * Chief Complaints: * 1 . FASTING LIPIDS. * Medical History: * Medications: U nknown Atorvastatin Calcium 40 MG Tablet 1 tablet Orally Once a day , Unknown traZODone HCl 50 MG Tablet TAKE 1 TABLET BY MOUTH EVERY DAY AT BEDTIME NEEDED FOR 30 DAYS , Unknown Advil PM 200-25 MG Capsule 2 capsules at bedtime as needed Orally Once a day , Unknown Diprolene AF 0.05 % Cream 1 application Externally Once a day , Unknown Nystatin 768618 UNIT/GM Cream 1 application to affected area Externally Twice a day Objective: * Vitals: Assessment: * Assessment: 1. H ypercholesterolemia - E78.00 (Primary) Plan: * Treatment: * * The named appointment provid er may or may not be the originator of this progress note, and it is not deemed complete until electronically signed by the appointment provider. Sign off status: Pending * Provider: Saadia Schuster MD Date: 0 10/09/2024 Generated for Brandie leong/Vicki/Carlositting on: 0 03/26/2025 11:56 AM EDT
--- OUTSIDE RECORDS SUMMARY | 2025-03-26 03:00 | XMS_ITS ---
Author Organization Samuel Schuster MD Address [address] [place] [phone] Care Team Providers Care Color Receiver Name Role Phone Samuel Schuster Primary Care Provider [phone] Results Component Value Reference Range Notes Complete Blood Count Auto Di ff (Not yet reviewed by provider) Interpretation: Performing Lab:[facility], [address] [place] [phone] Notes/Report: White Blood Count 5.6 4.8-10.8 X10*3/uL Red Blood Count 4.46 4.20-5.50 X10*6/uL Hemoglobin 13.2 12.0-16.0 g/dl Hematocrit 40.5 37.0-47.0 % Mean Corpuscular Volume 90.8 80.0-98.0 fL Mean Corpuscular Hemoglobin 29.6 27.0-33.0 pg Mean Corpuscular HGB Conc 32.6 31.0-35.0 g/dl Red Cell Distribution Width 14.2 11.0-16.0 % Platelet Count 283 160-400 X10*3/uL Mean Platelet Volume 10.3 9.4-12.3 fL Neutrophils Percent Auto 49.4 45-73 % Imm Gran Pct Auto 0.4 0.0-0.4 % Lymphocytes Percent Auto 42.0 20-40 % Monocytes Percent Auto 7.3 2-11 % Eosinophils Percent Auto 0.2 0-4 % Basophils Percent Auto 0.7 0-2 % NRBC Pct Auto 0.0 0.0-0.2 /100WBC Neutrophils Absolute Auto 2.8 2.0-8.3 x10*3/u L Imm Gran Abs Auto 0.02 0.00-0.03 X10*3/uL Lymphocytes Absolute Auto 2.4 1.2-4.9 X10*3/u L Monocytes Absolute Auto 0.4 0.1-1.2 X10*3/uL Eosinophils Absolute Auto 0.0 0.0-0.4 X10*3/u L Basophils Absolute Auto 0.0 0.0-0.2 X10*3/uL NRBC Abs Auto 0.000 0.0-0.012 X10*3/uL Lipid Panel (Not yet reviewe d by provider) Interpretation: Performing Lab:[address] [phone] Notes/Report: Triglycerides 54 <150 mg/dL Desirable Triglyceride: less than 150 mg/dL Borderline High Triglyceride 150-199 mg/dL High Triglyceride: 200-499 mg/dL Very High Triglyceride: greater than or equal to 5OO mg/dL Cholesterol 167 <200 mg/dL Desirable Cholesterol: less than 200 mg/dL Borderline High Cholesterol: 200-239 mg/dL High Cholesterol: greater than 239 mg/dL LDL Cholesterol Calculated 91 <100 mg/dL Desirable LDL: less than 100 mg/dL Near Optimal/Above Optimal LDL: 110-129 mg/dL Borderline High LDL: 130-159 mg/dL High LDL: 160-189 mg/dL Very High LDL: greater than or equal to 190 mg/dL HDL Cholesterol 66 >40 mg/dL Desirable HDL: greater than 40 mg/dL Note: This HDL assay may give artificially low results in patients with liver disease. UA ClnCatch+Micro w/rflx Cul t (Not yet reviewed by provider) Interpretation: Performing Lab:[address] [phone] Notes/Report: Urine, Clean Catch Color Urine Yellow Appearance Urine Clear PH 6.0 5.0-9.0 Glucose Urine UA Negative Negative mg/dL Urine Blood Negative Negative Specific [place] - Urine 1.015 1.005-1.025 Urine Protein Negative Neg-Trace mg/dL Urine Ketones Negative Negative mg/dL Nitrite Urine Negative Negative Leukocyte Esterase Urine Negative Negative RBC Urine 0-2 0-2 /HPF WBC Urine 0-5 0-5 /HPF Squamous Epithelial Cell Urine 0-2 0-2 /HPF Bacteria Urine None Seen None Seen Hyaline Casts Urine 0-2 0-2 /LPF REASON FOR VISIT FASTING LABS Encounters Encounter Location Date Provider Diagnosis Samuel Schuster MD [address] [place] [address] [place] [phone] 03/26/2025 Samuel Schuster Blood tests for rout ine general physical examination Z00.00 ; Lymphocytosis D72.820 and Hypercholesterolemia E78.00 Assessments Encounter Date Diagnosis (ICD Code) Assessment Notes Treatment Notes Treatment Clinical Notes Section Notes 03/26/2025 Blood tests for rout ine general physical examination (ICD-10 - Z00.00) 03/26/2025 Lymphocytosis (ICD-1 0 - D72.820) 03/26/2025 Hypercholesterolemia (ICD-10 - E78.00) Plan Of Treatment Pending Test Test Name Order Date Complete Blood Count Auto Diff 5 Comprehensive [place]. Panel Fast 5 Lipid Panel 03/26/2025 UA ClnCatch+Micro w/rflx Cult 03/26/2025 Next Appt Details Provider Name:Samuel Wylie ier, 04/10/2025 08:30:00 AM, [address] [place] [address], Suite [facility], [place], [place], [phone], Progress Notes * GUI SORIA EDOB: 3 (59 yo F)Acc No.[id number]:03/26/2025 Progress Note Patient: GUI SALGUERO E Provider: Saadia Schuster MD :1965 A ge:59 Y S ex:Female Date:03/26/2025 Address:[address] [place] [address] , [id number] Subjective: * Chief Complaints: * 1 . FASTING LABS. * Medical History: Objective: * Vitals: Assessment: * Assessment: 1. B lood tests for routine general physical examination - Z00.00 (Primary) 2 .?Lymphocytosis - D72.820 3 . H ypercholesterolemia - E78.00 ? Plan: * Treatment: 2. L ymphocytosis L AB: Complete Blood Count Auto Diff (Collection Date & Time - 03/26/2025 07:00 AM) L AB: Comprehensive [place]. Panel Fast L AB: Lipid Panel (Collection Date & Time - 03/26/2025 07:00 AM) L AB: UA ClnCatch+Micro w/rflx Cult (Collection Date & Time - 03/26/2025 07:00 AM) 3. H ypercholesterolemia L AB: Complete Blood Count Auto Diff (Collection Date & Time - 03/26/2025 07:00 AM) L AB: Comprehensive [place]. Panel Fast L AB: Lipid Panel (Collection Date & Time - 03/26/2025 07:00 AM) L AB: UA ClnCatch+Micro w/rflx Cult (Collection Date & Time - 03/26/2025 07:00 AM) * Procedure Codes: 3 6415 VENIPUNCT, ROUTINE* * * The named appointment provid er may or may not be the originator of this progress note, and it is not deemed complete until electronically signed by the appointment provider. Sign off status: Pending * Provider: Saadia Schuster MD Date: 0 03/26/2025 Generated for Brandie leong/Vicki/Carlositting on: 03/26/2025 11:56 AM EDT
[2025-03-26 10:34] LABS: MANUAL DIFF FLAG NO
[2025-03-26 10:51] LABS: Hematocrit 40.5 % (37.0-47.0); Hemoglobin 13.2 g/dl (12.0-16.0); Imm Gran Abs Auto 0.02 X10*3/uL (0.00-0.03); Imm Gran Pct Auto 0.4 % (0.0-0.4); Lymphocytes Absolute Auto 2.4 X10*3/uL (1.2-4.9); Mean Corpuscular HGB Conc 32.6 g/dl (31.0-35.0); Mean Corpuscular Hemoglobin 29.6 pg (27.0-33.0); Mean Corpuscular Volume 90.8 fL (80.0-98.0); NRBC Abs Auto 0.000 X10*3/uL (0.0-0.012); NRBC Pct Auto 0.0 /100WBC (0.0-0.2); Platelet Count 283 X10*3/uL (160-400); Red Blood Count 4.46 X10*6/uL (4.20-5.50); White Blood Count 5.6 X10*3/uL (4.8-10.8)
[2025-03-26 10:57] LABS: Appearance Urine Clear; Glucose Urine UA Negative (Negative); PH 6.0 (5.0-9.0); Specific Gravity - Urine 1.015 (1.005-1.025)
[2025-03-26 11:10] LABS: Alanine Aminotransferase 23 U/L (0-31); Albumin Level 4.1 g/dL (3.5-5.0); Alkaline Phosphatase 66 U/L (39-117); Anion Gap 11 (12-20); Aspartate Amino Transferase 24 U/L (5-31); Blood Urea Nitrogen 13 mg/dL (9-16); Calcium 8.7 mg/dL (8.4-10.2); Carbon Dioxide 28 mmol/L (22-29); Chloride 106 mmol/L (96-108); Cholesterol 167 mg/dL (<200); Estimated Glomerular Filt Rate > 60; HDL Cholesterol 66 mg/dL (>40); Potassium 3.8 mmol/L (3.3-5.1); Sodium 141 mmol/L (135-145); Total Protein 6.2 g/dL (6.5-8.0); Triglycerides 54 mg/dL (<150)
--- OUTSIDE RECORDS SUMMARY | 2025-03-26 11:55 | XMS_ITS | Patient Health Record ---
Author Organization [facility] Address [address] [place] [address] Care Team Providers Care Bindery Machine Setter Name Role Phone Landen MARQUES, Samuel Primary Care Provider Bry Tate Unavailable [phone] Allergies Allergen (clinical drug ingredient) Drug/Non Drug [...] Problem Status W/U Status Risk Notes Problem 070339917 Colon cancer screening (Z12.11) Active confirmed Problem 669906556 Encounter for screening for malignant neoplasm of colon (Z12.11) Active confirmed Problem Diverticular disease of colon (515387788) Diverticulosis of large intestine without perforation or abscess without bleeding (K57.30) Active confirmed Problem 813193785 Preprocedural examination (Z01.818) Active confirmed Problem 246566167 Hx of adenomatou s colonic polyps (Z86.010) Active confirmed Problem Benign neoplasm of colon (83134303) Tubulovillous adenoma of large intestine (D12.6) Active confirmed Vital Signs Blood pressure diastolic 11 mm Hg 10/02/2024 Height 70 in 10/02/2024 Blood pressure systolic 111 mm Hg 10/02/2024 Weight 150 lbs 10/02/2024 BMI 21.52 kg/m2 10/02/2024 Procedures Procedure Date Ordered Date Performed Result Body Sit e COLONOSCOPY 10/02/2024 N/A Encounters Encounter Location Date Provider Diagnosis [facility] [address] [place] [address] 10/02/2024 Bry Correa Encounter for screen ing for malignant neoplasm of colon Z12.11 ; Preprocedural examination Z01.818 ; Hx of adenomatous colonic polyps Z86.010 and Tubulovillous adenoma of large intestine D12.6 Assessments Encounter Date Diagnosis (ICD Code) Assessment Notes Treatment Notes Treatment Clinical Notes Section Notes 10/02/2024 Encounter for screening for malignant neoplasm of colon (ICD-10 - Z12.11) Overall, Gui appears quite well. We did review the findings from her colonoscopy in July 2022. We discussed the removal of the relatively large tubulovillous adenoma and the pathology specimen revealing some residual polyp type tissue at the base of the polyp, even though the procedure report describes that the polypectomy site appeared to be free of any residual polyp tissue. Based on the pathology report describing some possible residual polyp tissue at the base of the polyp specimen, along with the nature and size of the polyp in regard to its relatively flat appearance and relatively large size, I did recommend she undergo a colonoscopy this year rather than wait for the typical 3 to 5 years. We did review the rationale for this in regard to colorectal cancer prevention and/or early detection. Full consent has been obtained from her for this, including risks of bleeding and perforation. The procedure will be done with monitored anesthesia care. She was given the below instruction regarding adjustment of her medication for the procedure. Gui was comfortable with this plan. Thank you again for allowing me to participate in Gui's care. I shall continue to keep you advised of her progress. 10/02/2024 Preprocedural examination (ICD-10 - Z01.818) Overall, Gui appears quite well. We did review the findings from her colonoscopy in July 2022. We discussed the removal of the relatively large tubulovillous adenoma and the pathology specimen revealing some residual polyp type tissue at the base of the polyp, even though the procedure report describes that the polypectomy site appeared to be free of any residual polyp tissue. Based on the pathology report describing some possible residual polyp tissue at the base of the polyp specimen, along with the nature and size of the polyp in regard to its relatively flat appearance and relatively large size, I did recommend she undergo a colonoscopy this year rather than wait for the typical 3 to 5 years. We did review the rationale for this in regard to colorectal cancer prevention and/or early detection. Full consent has been obtained from her for this, including risks of bleeding and perforation. The procedure will be done with monitored anesthesia care. She was given the below instruction regarding adjustment of her medication for the procedure. Gui was comfortable with this plan. Thank you again for allowing me to participate in Gui's care. I shall continue to keep you advised of her progress. 10/02/2024 Hx of adenomatous colonic polyps (ICD-10 - Z86.010) Overall, Gui appears quite well. We did review the findings from her colonoscopy in July 2022. We discussed the removal of the relatively large tubulovillous adenoma and the pathology specimen revealing some residual polyp type tissue at the base of the polyp, even though the procedure report describes that the polypectomy site appeared to be free of any residual polyp tissue. Based on the pathology report describing some possible residual polyp tissue at the base of the polyp specimen, along with the nature and size of the polyp in regard to its relatively flat appearance and relatively large size, I did recommend she undergo a colonoscopy this year rather than wait for the typical 3 to 5 years. We did review the rationale for this in regard to colorectal cancer prevention and/or early detection. Full consent has been obtained from her for this, including risks of bleeding and perforation. The procedure will be done with monitored anesthesia care. She was given the below instruction regarding adjustment of her medication for the procedure. Gui was comfortable with this plan. Thank you again for allowing me to participate in Gui's care. I shall continue to keep you advised of her progress. 10/02/2024 Tubulovillous adenoma of large intestine (ICD-10 - D12.6) Overall, Gui appears quite well. We did review the findings from her colonoscopy in July 2022. We discussed the removal of the relatively large tubulovillous adenoma and the pathology specimen revealing some residual polyp type tissue at the base of the polyp, even though the procedure report describes that the polypectomy site appeared to be free of any residual polyp tissue. Based on the pathology report describing some possible residual polyp tissue at the base of the polyp specimen, along with the nature and size of the polyp in regard to its relatively flat appearance and relatively large size, I did recommend she undergo a colonoscopy this year rather than wait for the typical 3 to 5 years. We did review the rationale for this in regard to colorectal cancer prevention and/or early detection. Full consent has been obtained from her for this, including risks of bleeding and perforation. The procedure will be done with monitored anesthesia care. She was given the below instruction regarding adjustment of her medication for the procedure. Gui was comfortable with this plan. Thank you again for allowing me to participate in Gui's care. I shall continue to keep you advised of her progress. Plan Of Treatment Pending Test Test Name Order Date COLONOSCOPY 10/02/2024 Future Test Test Name Order Date COLONOSCOPY 02/08/2017 COLONOSCOPY 08/03/2022 Next Appt Details Provider Name:Bry Ritter Correa , 03/27/2025 07:30:00 AM, [address] [place] [address] , [place], [place], [phone], Insurance Providers Payer Name Payer Address Payer Phone Subscriber Number Group Number Insured Name Patient Relationship to Insured Coverage Start Date Coverage End Date [facility] [address] [place] [phone] [id number] YANG GUI Self - patient is the insured Medical (General) History Medical History History ICD Code Denies RI,DM,CVA,Lung disease,renal dise ase Elevated cholesterol Plantar fascitis Screening colonoscopy in Apr with removal of several small tubular adenomas 07/2022 screening colon--3 po lyps were removed, with 1 revealing a tubular adenoma, 1 with benign colonic mucosa, and 1 with a tubulovillous adenoma with what appeared to be polyp tissue at the base of the polyp specimen--- this latter polyp was approximately 1.5 cm and relatively flat--it did appear to have been completely removed according to the colonoscopy report Surgical History Surgery Date(Month/Year) Laser ablation of cervix around 2006
--- OUTSIDE RECORDS SUMMARY | 2025-03-26 11:56 | XMS_ITS | Patient Health Record ---
Author Organization Samuel Schuster MD Address [address] [place], [place] [id number] Care Team Providers Care Lumber Sales Supervisor Name Role Phone Samuel Schuster Primary Care Provider [phone] Allergies Allergen (clinical drug ingredient) Drug/Non Drug Allergy documented on EMR Reaction Allergy Type Onset Date Status Penicillin (uncoded) hives Allergy Active Results Component Value Reference Range Notes Complete Blood Count Auto Di ff Reviewed date:04/01/2024 08:45:29 AM Interpretation: Performing Lab:[facility], [address] [place] [phone] Notes/Report: White Blood Count 4.6 4.8-10.8 X10*3/uL [...] NRBC Abs Auto 0.000 0.0-0.012 X10*3/uL Comprehensive [place]. Panel Fa st Reviewed date:03/31/2024 04:05:09 PM Interpretation: Performing Lab:[facility], [address] [place] [phone] Notes/Report: Sodium 138 135-145 mmol/L Potassium 3.9 3.3-5.1 mmol/L Chloride 106 96-108 mmol/L Carbon Dioxide 25 22-29 mmol/L Anion Gap 11 12-20 Blood Urea Nitrogen 13 9-16 mg/dL Creatinine 0.71 0.5-1.4 mg/dL Estimated Glomerular Filt Rate > 60 NOTE: For -Bhutanese individuals, multiply the result by 1.210. Chronic [...] Panel Reviewed date:03/31/2024 04:02:04 PM Interpretation: Performing Lab:[facility], [address] [place] [phone] Notes/Report: Triglycerides 69 <150 mg/dL Desirable Triglyceride: [...] t Reviewed date:03/31/2024 04:07:17 PM Interpretation: Performing Lab:[facility], [address] [place] [phone] Notes/Report: [id number] Urine, Clean Catch Color Urine Yellow Appearance Urine Clear PH 6.5 5.0-9.0 Glucose Urine UA Negative Negative mg/dL Urine Blood Negative Negative Specific [place] - Urine 1.010 1.005-1.025 Urine Protein Negative Neg-Trace mg/dL Urine Ketones Negative Negative mg/dL Nitrite Urine Negative Negative Leukocyte Esterase Urine Negative Negative RBC Urine 0-2 0-2 /HPF WBC Urine 0-5 0-5 /HPF Squamous Epithelial Cell Urine 0-2 0-2 /HPF Bacteria Urine None Seen None Seen Hyaline Casts Urine 0-2 0-2 /LPF Complete Blood Count Auto Di ff (Not yet reviewed by provider) Interpretation: Performing Lab:[facility], [address] [place] [phone] Notes/Report: White Blood Count 5.6 4.8-10.8 X10*3/uL [...] yet reviewe d by provider) Interpretation: Performing Lab:[facility], [address] [place] [phone] Notes/Report: Triglycerides 54 <150 mg/dL Desirable Triglyceride: [...] (Not yet reviewed by provider) Interpretation: Performing Lab:[address] [phone] Notes/Report: Urine, Clean Catch Color Urine Yellow Appearance Urine Clear PH 6.0 5.0-9.0 Glucose Urine UA Negative Negative mg/dL Urine Blood Negative Negative Specific [place] - Urine 1.015 1.005-1.025 Urine Protein Negative Neg-Trace mg/dL Urine Ketones Negative Negative mg/dL Nitrite Urine Negative Negative Leukocyte Esterase Urine Negative Negative RBC Urine 0-2 0-2 /HPF WBC Urine 0-5 0-5 /HPF Squamous Epithelial Cell Urine 0-2 0-2 /HPF Bacteria Urine None Seen None Seen Hyaline Casts Urine 0-2 0-2 /LPF Liver Panel Reviewed date:07/24/2024 12:51:51 PM Interpretation: Performing Lab:[address] [phone] Notes/Report: Bilirubin Total 0.5 0.0-1.0 mg/dL Bilirubin Direct 0.2 0.0-0.5 mg/dL Aspartate Amino Transferase 30 5-31 U/L Alanine Aminotransferase 25 0-31 U/L Total Protein 6.2 6.5-8.0 g/dL Albumin Level 3.9 3.5-5.0 g/dL Alkaline Phosphatase 64 39-117 U/L Lipid Panel Reviewed date:07/24/2024 12:54:04 PM Interpretation: Performing Lab:[address] [phone] Notes/Report: Triglycerides 76 <150 mg/dL Desirable Triglyceride: [...] low results in patients with liver disease. Comprehensive Met. Panel (N ot yet reviewed by provider) Interpretation: Performing Lab:[facility], [address] [place] [phone] Notes/Report: Sodium 141 135-145 mmol/L Potassium 3.8 3.3-5.1 mmol/L Chloride 106 96-108 mmol/L Carbon Dioxide 28 22-29 mmol/L Anion Gap 11 12-20 Blood Urea Nitrogen 13 9-16 mg/dL Creatinine 0.75 0.5-1.4 mg/dL Estimated Glomerular Filt Rate > 60 Chronic Kidney Disease: Estimated GFR < 60 mL/min/1.73m2 Severe Kidney Disease: Estimated GFR < 15 mL/min/1.73m2 Glucose Random 78 60-115 mg/dL Calcium 8.7 8.4-10.2 mg/dL Bilirubin Total 0.6 0.0-1.0 mg/dL Aspartate Amino Transferase 24 5-31 U/L Alanine Aminotransferase 23 0-31 U/L Total Protein 6.2 6.5-8.0 g/dL Albumin Level 4.1 3.5-5.0 g/dL Alkaline Phosphatase 66 39-117 U/L Reason For Referral No Information Medications Medication SIG (Take, Route, Frequency, Duration) Notes Start Date End Date Status Atorvastatin Calcium 40 MG 1 tablet Oral ly Once a day for 90 days 04/07/2024 Unknown Diprolene AF 0.05 % 1 application [employer] ally Once a day for 30 days 11/24/2019 Unknown Nystatin 344279 UNIT/GM 1 application to affected area Externally [...] Problem Status W/U Status Risk Notes Problem 99047147 Lymphocytosis (D72.820) Active confirm ed Problem 874243965 Tubular adenoma (D36.9) Active confir med Problem 28405881 Anxiety (F41.9) Active confirmed Problem 5783097 Primary insomnia (F51.01) Active confirmed Problem Obstructive sleep apnea syndrome (disorder) (08326460) Obstructive sleep apnea (adult) (pediatric) (G47.33) Active confirmed Problem 90998231 Intrinsic eczema (L20.84) Active confirmed Problem 830620449 Family history o f hypothyroidism (Z83.49) Active confirmed Problem 153592678 Elevated LDL cholesterol level (E78.00) Active confirmed Problem 406826784 OAB (overactive bladder) (N32.81) Active confirmed Problem 36435181 Hypercholesterol emia (E78.00) Active confirmed Problem 10006960 NITHYA (obstructive sleep apnea) (G47.33) Active confirmed Problem 330026750 Basal cell carci noma of skin, site [...] Date Provider Diagnosis Samuel Schuster MD [address] [place] [phone] 03/31/2024 Samuel Schuster Annual physical exam Z00.00 ; Lymphocytosis D72.820 ; Elevated LDL cholesterol level E78.00 and Hypercholesterolemia E78.00 Samuel Schuster MD [address] [place] [address] Drive [address] [place] [phone] 03/26/2025 Samuel Schuster Blood tests for rout ine general physical examination Z00.00 ; Lymphocytosis D72.820 and Hypercholesterolemia E78.00 Samuel Schuster MD [address] [place] [address] [phone] 04/07/2024 Samuel Schuster Lymphocytosis D72.82 0 ; Annual physical exam Z00.00 ; Hypercholesterolemia E78.00 ; Elevated LDL cholesterol level E78.00 and Primary insomnia F51.01 Samuel Schuster MD [address] [place] [id number] 06/23/2024 Samuel Schuster Lipoma of hip D17.20 Samuel Schuster MD [address] [place] [phone] 07/24/2024 Samuel Schuster Habitual snoring R06 .83 and Elevated LDL cholesterol level E78.00 Assessments Encounter Date Diagnosis (ICD Code) Assessment Notes Treatment Notes Treatment Clinical Notes Section Notes 03/31/2024 Annual physical exam (ICD-10 - Z00.00) 03/31/2024 Lymphocytosis (ICD-1 0 - D72.820) 03/26/2025 Blood tests for rout ine general physical examination (ICD-10 - Z00.00) 04/07/2024 Lymphocytosis (ICD-1 0 - D72.820) stable, [...] Elevated LDL cholesterol level (ICD-10 - E78.00) 03/26/2025 Lymphocytosis (ICD-1 0 - D72.820) 04/07/2024 Hypercholesterolemia (ICD-10 - E78.00) has agreed to go back on nain landers understanding of mdication and diretion for use. 03/31/2024 Hypercholesterolemia (ICD-10 - E78.00) 03/26/2025 Hypercholesterolemia (ICD-10 - E78.00) 04/07/2024 Elevated LDL cholesterol level (ICD-10 - E78.00) 04/07/2024 Primary insomnia (ICD-10 - F51.01) Plan Of Treatment Pending Test Test Name Order Date Electrocardiogram (EKG) 11/11/2015 BONE DENSITY DEXA 06/08/2020 BONE DENSITY DEXA 11/02/2014 Complete Blood Count Auto Diff 5 Comprehensive Met. Panel 03/26/2025 Comprehensive [place]. Panel Fast Lipid Panel 03/26/2025 XR DEXA axial skeleton 12/17/2020 UA ClnCatch+Micro w/rflx Cult 03/26/2025 Next Appt Details Provider Name:Samuel mota, 04/10/2025 08:30:00 AM, [address], [address], [place], [place], [phone], Insurance Providers Payer Name Payer Address Payer Phone Subscriber Number Group Number Insured Name Patient Relationship to Insured Coverage Start Date Coverage End Date [address] [facility] [place] [phone] [id number] GUI SORIA Self - patient is the insured Medical (General) History Medical History History ICD Code PROCESS OWNER, DR. Martinez Snider,[facility] ([phone]) Mammo done 01/02 colonoscopy done 05/10/[address] Correa - repeat 5 years:[id number] colonoscopy repeat 2 years Elevated blood sugar
--- OUTSIDE RECORDS SUMMARY | 2025-03-26 11:56 | XMS_ITS | Patient Health Record ---
Author Organization [facility] Address [address] [place] [address] Care Team Providers Care Consulting Solution Director Name Role Phone RAMY QUINTERO Unavailable [phone] Allergies Allergen (clinical drug ingredient) Drug/Non Drug Allergy documented on EMR Reaction Allergy Type Onset Date Status Penicillin Hives Drug Allergy Active Results Component Value Reference Range Notes [id number] IGP No Culture 30 Plus Reviewed date:10/15/2024 08:28:23 AM Interpretation: Performing Lab:[facility], [address], [place], Phone - [phone], Director - [facility] Notes/Report: Clinical Information:Cervical, LMP: [place] [id number] Dates / Results....04/02/20 NIL, Neg HPV Other..............Post Menopausal No. of containers..01 ThinPrep Vial DIAGNOSIS: NEGATIVE FOR IN TRAEPITHELIAL LESION OR MALIGNANCY. Specimen adequacy: Satisfactory for evaluation. Endocervical and/or squamous metaplastic cells (endocervical component) are present. Clinician provided ICD10: Z0 1.419 Performed by: Mathew Reynoso , Industrial Twisting Machine Operator (ASCP) . . Note: The Pap smear [...] Rachel [address], [address], [place], Phone - [phone], Director - [facility] Notes/Report: Clinical Information:Cervical, LMP: [place] [id number] Dates / Results....04/02/20 NIL, Neg HPV Other..............Post Menopausal No. of containers..01 ThinPrep Vial Reason For Referral No Information Medications Medication SIG (Take, Route, Frequency, Duration) Notes Start Date End Date Status Estradiol 0.1 MG/GM 1 gram Vaginal three times weekly; Duration: 365 days 10/10/2024 Active Atorvastatin Calcium 40 MG TAKE 1 TABLET BY MOUTH EVERY DAY FOR 90 DAYS Oral; Duration: 90 Days Active Social History Tobacco Use: [...] Status Risk Notes Problem Postmenopausal atrophic vaginitis (42337040) Postmenopausal atrophic vaginitis (N95.2) Active confirmed Problem Hyperlipidemia (19361213) Hyperlipidemia, unspecified (E78.5) Active confirmed Problem COVID-19 (101957972) COVID-19 (U07.1) Active confirmed Vital Signs Temperature 97.4 degrees Fahrenheit 10/10/2024 Blood pressure diastolic 70 mm Hg 10/10/2024 Height 70 in 10/10/2024 Blood pressure systolic 104 mm Hg 10/10/2024 Weight 152 lbs 10/10/2024 BMI 21.81 kg/m2 10/10/2024 Encounters Encounter Location Date Provider Diagnosis [facility] [address] [place] [address] 10/10/2024 RAMY QUINTERO Encounter for gynecological examination [...] Name:RAMY LEDBETTER Claribel, 10/16/2025 09:40:00 AM, [address], [address], [place], [address], Insurance Providers Payer Name Payer Address Payer Phone Subscriber Number Group Number Insured Name Patient Relationship to Insured Coverage Start Date Coverage End Date [facility] [address] [place] [address] [id number] SORIA Self - patient is the insured Medical (General) History Medical History History ICD Code Dense breasts, unspecified R92.30 Mammographic heterogeneous density, bila teral breasts R92.333 Hyperlipidemia, unspecified E78.5 COVID-19 U07.1 Surgical History Surgery Date(Month/Year) LASER ablation cervix 2006 Colonoscopy 07/2022
--- OUTSIDE RECORDS SUMMARY | 2025-03-26 11:56 | XMS_ITS | Patient Health Record ---
Author Organization [facility] Address [address] [place] [address] Care Team Providers Care Massage Therapy Instructor Name Role Phone Samuel Schuster MD Primary Care Provider Mat Russell Unavailable [phone] Reason For Referral No Information Plan Of Treatment No Information Insurance Providers Payer Name Payer Address Payer Phone Subscriber Number Group Number Insured Name Patient Relationship to Insured Coverage Start Date Coverage End Date [id number] [address] [place] [address] [id number] Megan Aguila Self - patient is the insured
--- OUTSIDE RECORDS SUMMARY | 2025-03-26 11:56 | XMS_ITS ---
Author Name [facility] Organization Unknown Allergies Allergen Reaction Severity Comment Documented Date Source Statu s [place] ENS_AONECT Problems Problem Status Onset Date Problem Type Date of Resoluti on Source Contusion of right knee active 2023-10-23 ProblemAct ENS_AONECT Encounters Encounter Type Encounter Reason Primary Diagnosis Location Date Ambulatory [facility] 10/24/2023 [facility]ulatory [facility] 10/23/2023 [facility] 10/23/2023 [facility] 10/23/2023 [facility] [place] 10/23/2023 Ambulatory [facility] 10/23/2023 Care Team Organization Name Specialty Phone Email Start Date End [facility] 12/23/[facility] Samuel Schuster MD Primary Care
== END 2025-03-26 10:32 | disposition home or self-care (01) ==
LOC: HO.LNP 10:31
PROVIDERS: Visit Provider Internal Medicine
DX: Z00.00 Encounter for general adult medical examination without abnormal findings (principal); E78.00 Pure hypercholesterolemia, unspecified; D72.820 Lymphocytosis (symptomatic)
CPT/HCPCS: 80053; 80061; 81001; 85025

== ENCOUNTER 2025-03-27 06:26 | Day surgery (SDC) | payer OTHER, SELFPAY ==
--- OUTSIDE RECORDS SUMMARY | 2024-12-11 09:13 | XMS_ITS | Patient Health Record ---
Author Organization [facility] Address [address] [place] [address] Care Team Providers Care Appeals Nurse Name Role Phone Landen MARQUES, Samuel Primary Care Provider Bry Tate Unavailable [phone] Allergies Allergen (clinical drug ingredient) Drug/Non Drug Allergy documented on EMR Reaction Allergy Type Onset Date Status Penicillin hives Drug Allergy Active Reason For Referral No Information Medications Medication SIG (Take, Route, Frequency, Duration) Notes Start Date End Date Status Vitamin B Complex Ac tive Vitamin E Active Atorvastatin Calcium 10 MG 1 tablet Oral ly Once a day Active Multivitamin & Mineral Active Fish Oil Active Vitamin D Active Immunizations Vaccine Route Administration Date Status Comme nts Influenza Unknown 08/03/2022 Refused Social History Tobacco Use: Social History [...] Never (0 point) Points 3 Interpretation Positive Section Notes: Nonsmoker; no sig alcohol Nonsmoker; no sig alcohol Nonsmoker; no sig alcohol Problems Problem Type SNOMED Code ICD Code Onset Dates Problem Status W/U Status Risk Notes Problem 396940025 Colon cancer screening (Z12.11) Active confirmed Problem 183355517 Encounter for screening for malignant neoplasm of colon (Z12.11) Active confirmed Problem Diverticular disease of colon (647685055) Diverticulosis of large intestine without perforation or abscess without bleeding (K57.30) Active confirmed Problem 844227112 Preprocedural examination (Z01.818) Active confirmed Problem 961122558 Hx of adenomatou s colonic polyps (Z86.010) Active confirmed Problem Tubulovillous adenoma of large intestine (D12.6) Active confirmed Vital Signs Blood pressure diastolic 11 mm Hg 10/02/2024 Height 70 in 10/02/2024 Blood pressure systolic 111 mm Hg 10/02/2024 Weight 150 lbs 10/02/2024 BMI 21.52 kg/m2 10/02/2024 Procedures Procedure Date Ordered Date Performed Result Body Sit e COLONOSCOPY 10/02/2024 N/A Encounters Encounter Location Date Provider Diagnosis [facility] [address] [place] [address] 10/02/2024 Bry Correa Encounter for screen ing for malignant neoplasm of colon Z12.11 ; Preprocedural examination Z01.818 ; Hx of adenomatous colonic polyps Z86.010 and Tubulovillous adenoma of large intestine D12.6 Assessments Encounter Date Diagnosis (ICD Code) Assessment Notes Treatment Notes Treatment Clinical Notes Section Notes 10/02/2024 Encounter for screening for malignant neoplasm of colon (ICD-10 - Z12.11) 10/02/2024 Preprocedural examination (ICD-10 - Z01.818) 10/02/2024 Hx of adenomatous colonic polyps (ICD-10 - Z86.010) 10/02/2024 Tubulovillous adenoma of large intestine (ICD-10 - D12.6) Plan Of Treatment Pending Test Test Name Order Date COLONOSCOPY 10/02/2024 Future Test Test Name Order Date COLONOSCOPY 02/08/2017 COLONOSCOPY 08/03/2022 Next Appt Details Provider Name:Bry Correa , 01/02/2025 08:35:00 AM, [address] [facility] , [place], [place], [phone], Insurance Providers Payer Name Payer Address Payer Phone Subscriber Number Group Number Insured Name Patient Relationship to Insured Coverage Start Date Coverage End Date [employer] [address] [place] [phone] [id number] GUI SORIA Self - patient is the insured Medical (General) History Medical History History ICD Code Denies IN,DM,CVA,Lung disease,renal dise ase Elevated cholesterol Plantar fascitis Screening colonoscopy in Apr with removal of several small tubular adenomas 07/2022 colonoscopy Surgical History Surgery Date(Month/Year) Laser ablation of cervix around 2006
--- OUTSIDE RECORDS SUMMARY | 2024-12-11 09:13 | XMS_ITS ---
Author Organization Samuel Schuster MD Address [address] [place], [place] [phone] Care Team Providers Care Inspector Dials Name Role Phone Samuel Schuster Primary Care Provider [phone] Allergies Allergen (clinical drug ingredient) Drug/Non Drug Allergy documented on EMR Reaction Allergy Type Onset Date Status Penicillin (uncoded) hives Allergy Active Results Component Value Reference Range Notes Liver Panel Reviewed date:07/24/2024 12:51:51 PM Interpretation: Performing Lab:[facility], [address] [place] [phone] Notes/Report: Bilirubin Total 0.5 0.0-1.0 mg/dL Bilirubin Direct 0.2 0.0-0.5 mg/dL Aspartate Amino Transferase 30 5-31 U/L Alanine Aminotransferase 25 0-31 U/L Total Protein 6.2 6.5-8.0 g/dL Albumin Level 3.9 3.5-5.0 g/dL Alkaline Phosphatase 64 39-117 U/L Lipid Panel Reviewed date:07/24/2024 12:54:04 PM Interpretation: Performing Lab:[facility], [address] [place] [phone] Notes/Report: Triglycerides 76 <150 mg/dL Desirable Triglyceride: [...] day for 90 days 04/07/2024 Active Nystatin 637944 UNIT/GM 1 application to affected area Externally Twice a day for 14 days 11/21/2016 Not-Taking Vital Signs Blood pressure systolic 98 mm Hg 07/24/19 25 Blood pressure diastolic 70 mm Hg 025 Height 70 in 07/24/2024 Weight 153 lbs 07/24/2024 BMI 21.95 kg/m2 07/24/2024 weight is down 2 pounds sin e 06-23-24 Encounters Encounter Location Date Provider Diagnosis Samuel Schuster MD [address] [place], [place] [phone] 07/24/2024 Samuel Schuster Habitual snoring R06.83 and [...] Next Appt Details Provider Name:Samuel Wylie ier, 03/27/2025 07:00:00 AM, [address], [address], [place], [place], [phone], Provider Name:Samuel Wylie ier, 04/10/2025 08:30:00 AM, [address], [address], [place], [place], [phone], Progress Notes * GUI SORIA EDOB: 3 (59 yo F)Acc No.[id number]:07/24/2024 Progress Notes Patient:?GUI SORIA E Provider:?Samuel Schuster MD :1965???Age:59 Y???Sex:Female D ate:07/24/2024 Address:[address] [place] [address], [place], [place] Subjective: * Chief Complaints: * ???3 MO F/U * HPI: ???Symptom(s):? patient is a 59 yo female here for 3 month follow up of cholesterol. has tinitus. * ROS:?General/Constitutional:?Denies?Chills.?Denies?Fatigue.?Denies?Fever.?Denies?Headache.?ENT:?Patient denies?decreased sense of smell , any loss of taste , sore throat.?Denies?Sore throat.?Respiratory:?Denies?Cough.?Denies?Shortness of breath at rest.?Denies?Shortness of breath with exertion.?Gastrointestinal:?Denies?Diarrhea.?Denies?Nausea.?Musculoskeletal:?Patient denies?muscle aches.?Peripheral Vascular:?Patient denies?red and blue toes.? * Medical History:? * Surgical History:? * Hospitalization/Major Diagno stic Procedure:? * Medications:?TakingAtorvasta tin Calcium 40 MG Tablet 1 tablet Orally Once a dayTaking Atorvastatin Calcium 40 MG Tablet 1 tablet Orally Once a dayNot- Taking/PRNtraZODone HCl 50 MG Tablet TAKE 1 TABLET BY MOUTH EVERY DAY AT BEDTIME NEEDED FOR 30 DAYS Advil PM 200-25 MG Capsule 2 capsules at bedtime as needed Orally Once a dayDiprolene AF 0.05 % Cream 1 application Externally Once a dayNystatin 036345 UNIT/GM Cream 1 application to affected area [...] 1 application Externally Once a dayNot-Taking/PRN Nystatin 410677 UNIT/GM Cream 1 application to affected area Externally Twice a dayMedication List reviewed and reconciled with the patient * Allergies:?Penicillin: hives yes[Allergies Verified] Objective: * Vitals:?Ht: 70, Wt:153, BMI: 21.95, BP:98/70 weight is down 2 pounds since 06-23-24. * Examination: ???General Examination: ?GENERAL APPEARANCE:?alert, well hydrated, in no distress.?HEAD:?normocephalic.?SKIN:?good turgor.?HEART:?no murmurs, rubs, gallops , regular rate and rhythm.?LUNGS:?no wheezes, rales, rhonchi , good air movement , clear to auscultation bilaterally.? Assessment: * Assessment: 1.?Habitual snoring - R06.83 (Primary)?2.?Elevated LDL cholesterol level - E78.00? Plan: * Treatment: 2.?Elevated LDL cholesterol level? Notes: pending labs?? * Procedure Codes:?13192 VENIP UNCT, ROUTINE* * * Sign off status: Completed true * Provider:?Samuel Schuster MD Date:?0 07/24/2024 Generated for Brandie leong/Vicki/eTransmitting on:?12/11/2024 09:13 AM EDT History and Physical Notes * [...]
--- OUTSIDE RECORDS SUMMARY | 2024-12-11 09:13 | XMS_ITS | Data Portability ---
Author Organization [facility] Barbara Rojas [facility] [place] Address [address] [place] [address] Care Team Providers Care Accounting Consultant Name Role Phone ABA STEPHENS Referring Provider [...] to continue to improve. She continue with [id number]-[id number] er anti-inflammat ories or try Voltaren gel. After discussion, she is more optimistic and plans to continue with her planned trip. She will follow-up on an as-needed basis. All questions answered to her satisfaction. [email or web address] Not available 10/23/2023 11:37:58 Plan of Treatment [...] [facility], [address], [place], [address], 13:14:20 Medication Orders None record ed. Patient TargetsNo targets recorded. Patient Instructions Encounter Date Encounter Id Patient Instructions Last Modified By Organization Details Last Modified Time 10/23/2023 [id number] Radiographs: 4 views of {{the Left the Right* Both}} knee(s) were obtained in the {{[place]* [place]} } office on {{ 10/23/2023#}} including [...] Knees}}. X-ray interpretation by: Antwan Pham PA-C [email or web address] Not available 10/23/2023 11:38:18 Reason for Referral None Reported. Problems Name Problem SNOMED Code Status Onset Date Resolution Date Notes Provider Name and Address Organization Details Recorded Time Contusion of right knee 46762423029205 104 Active 2023 ANTWAN PHAM PA-C [address], [place], [address] , [place] [facility] [place] 11:36:53 Problem Notes None recorded. Medical Equipment None Reported. Allergies Allergen ID Allergen Name Allergen Category Reaction Reaction Severity Criticality Documentation Date Start Date Code Code System Note Provider Name and Address Organization Details Recorded Time 61351 Product containin g penicilli n (product) medicatio n Not available Not available Not available 10/23/2023 57577 8001 SNOMED Hayley [facility] [place] [facility] [place], [facility] 10:56:50 Medications Name Sig Start [...] Updated DateTime 10/23/2023 177.8 cm 21.5 kg/m2 [address].[address] [place] [facility] [place], 10/23/2023 10:57:37 Social History None recorded. Functional Status Question Answer Note LastModified by Organizat ion Details LastModified Time Do you use any illicit or recreational drugs? No [email or web address] Information not available 10/23/2023 Do you or have you ever used any other forms of tobacco or nicotine? No [email or web address] Information not available 10/23/2023 What is your level of alcohol consumption? Occasional [email or web address] Information not available 10/23/2023 Mental Status None recorded. Family History Nothing Reported. Medical History No medical history recorded. Gynecological HistoryNo gynecological history recorded. Obstetrics History GPAL:G 0 P 0 0 0 0 Past Encounters Encounter ID Performer Location Encounter Start Date Encounter Closed Date Diagnosis/Indication Diagnosis SNOMED-CT Code Diagnosis ICD10 Code Diagnosis Note [id number] ANTWAN PHAM PA-C [facility] [address] [place] [phone] 10/23/2023 10:39:08 10/23/2023 11:35:59 Pain of right knee joint 9479200919 32145 M25.561 Additional diagnosis detail: Pain, joint, knee, right Contusion of right knee 6094776874 6120253 S80.01XA Additional diagnosis detail: Contusion of right patella, initial encounter Health Concerns Section Related Observation LastModified by Organization Detai ls LastModified Time None Recorded Concern Status LastModified by Organization Details LastModified Time None Recorded Advance Directives Directive None Recorded Payers Encounter Date Sequence Insurance Name Policy Number Policy Ball Covered Member ID Ball Member ID Guarantor Name 10/23/2023 1 [facility] [id number] Megan Aguila [id number] Megan Aguila Notes Date Note Type Note [...] is going on a bike trip to [place] and presents today for urgent care evaluation. No numbness or tingling. No swelling. No bruising. Her only complaint is difficulty kneeling. She did like in the gym and had no problems. She did do Google search which told her she might have a patellar fracture. ANTWAN PHAM PA-C [address], [place], [address], [place] [facility] 10/23/2023 11:38:45 OBGyn Episode No OBEpisode recorded.
--- OUTSIDE RECORDS SUMMARY | 2024-12-11 09:13 | XMS_ITS ---
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 Generated for Printi ng/Carag/eTransmitting on:?12/11/2024 09:13 AM EDT
--- OUTSIDE RECORDS SUMMARY | 2024-12-11 09:13 | XMS_ITS | Patient Health Record ---
Author Organization [facility] Address [address] [place] [address] Care Team Providers Care Farm Agent Name Role Phone RAMY QUINTERO Unavailable [phone] Allergies Allergen (clinical drug ingredient) Drug/Non Drug Allergy documented on EMR Reaction Allergy Type Onset Date Status Penicillin Hives Drug Allergy Active Results Component Value Reference Range Notes [id number] IGP No Culture 30 Plus Reviewed date:10/15/2024 08:28:23 AM Interpretation: Performing Lab:[facility], [address], [place], Phone - [phone], Director - [facility] Notes/Report: Clinical Information:Cervical, LMP: [place] [id number] Dates / Results....04/02/20 NIL, Neg HPV Other..............Post Menopausal No. of containers..01 ThinPrep Vial DIAGNOSIS: NEGATIVE FOR IN TRAEPITHELIAL LESION OR MALIGNANCY. Specimen adequacy: Satisfactory for evaluation. Endocervical and/or squamous metaplastic cells (endocervical component) are present. Clinician provided ICD10: Z0 1.419 Performed by: Mathew Reynoso , Adult Neurologist (ASCP) . . Note: The Pap smear is a screening test designed to aid in the detection of premalignant and malignant conditions of the uterine cervix. It is not a diagnostic procedure and should not be used as the sole means of detecting cervical cancer. Both false-positive and false-negative reports do occur. . Test Methodology: This liquid based ThinPrep(R) pap test was screened with the use of an image guided system. HPV Aptima Negative Negative This nucleic acid amplification test detects fourteen high-risk HPV types (16,18,31,33,35,39,45,51,52,56,58 ,59,66,68) without differentiation. HPV Genotype Reflex Criteria not met, HPV Genotype not performed. PDF Report Reviewed date:10/15/2024 08:31:12 AM Interpretation: Performing Lab:[facility], [address], [address], [place], Phone - [phone], Director - [facility] Notes/Report: Clinical Information:Cervical, LMP: [place] [id number] Dates / Results....04/02/20 NIL, Neg HPV Other..............Post Menopausal No. of containers..01 ThinPrep Vial Reason For Referral No Information Medications Medication SIG (Take, Route, Frequency, Duration) Notes Start Date End Date Status Estradiol 0.1 MG/GM 1 gram Vaginal three times weekly for 365 days 10/10/2024 Active Atorvastatin Calcium 40 MG TAKE 1 TABLET BY MOUTH EVERY DAY FOR 90 DAYS Oral for 90 Days Active Social History Tobacco Use: Social History Observation Description Date Details (start date - stop date) Never Smoker NA - NA Sexual History Question Answer Notes Had sex in the past 12 months (vaginal, oral, or anal)? Yes with Men only Prevention strategies discussed: Other AUDIT-C (Standard) Question Answer Notes Did you have a [...] (0 point) How often did you have six o r more drinks on one occasion in the past year? Never (0 point) Points 3 Interpretation Positive Tobacco Control (Standard) Question Answer Notes Tobacco use: Nonsmoker Problems Problem Type SNOMED Code ICD Code Onset Dates Problem Status W/U Status Risk Notes Problem Postmenopausal atrophic vaginitis (23031422) Postmenopausal atrophic vaginitis (N95.2) Active confirmed Problem Hyperlipidemia (07546886) Hyperlipidemia, unspecified (E78.5) Active confirmed Problem COVID-19 (885007040) COVID-19 (U07.1) Active confirmed Vital Signs Temperature 97.4 degrees Fahrenheit 10/10/2024 Blood pressure diastolic 70 mm Hg 10/10/2024 Height 70 in 10/10/2024 Blood pressure systolic 104 mm Hg 10/10/2024 Weight 152 lbs 10/10/2024 BMI 21.81 kg/m2 10/10/2024 Encounters Encounter Location Date Provider Diagnosis [facility] [address] [place] [address] 10/10/2024 RAMY QUINTERO Encounter for gynecological examination (general) (routine) without abnormal findings Z01.419 ; Encounter for screening mammogram for malignant neoplasm of breast Z12.31 and Postmenopausal atrophic vaginitis N95.2 Assessments Encounter Date Diagnosis (ICD Code) Assessment Notes Treatment Notes Treatment Clinical Notes Section Notes 10/10/2024 Encounter for gynecological examination (general) (routine) without abnormal findings (ICD-10 - Z01.419) During the visit, the following areas of concern were addressed: Discussed cervical cancer screening with either cytology alone every 3 years or high risk HPV co-testing every 5 years as per ASCCP guidelines. Advised continued annual pelvic exams. Patient encouraged to increase her level of exercise. SBE technique encouraged/tau ght. Patient reminded when annual mammogram is due. Patient encouraged to keep colon screening up to date. 10/10/2024 Encounter for screening mammogram for malignant neoplasm of breast (ICD-10 - Z12.31) 10/10/2024 Postmenopausal atrophic vaginitis (ICD-10 - N95.2) Discussed using vaginal dilators to help stretch the vagina Plan Of Treatment Pending Test Test Name Order Date MM Digital Screening Mammogram 3D 2024 Next Appt Details Provider Name:RAMY LEDBETTER Claribel, 10/16/2025 09:40:00 AM, [address], [address], [place], [address], Insurance Providers Payer Name Payer Address Payer Phone Subscriber Number Group Number Insured Name Patient Relationship to Insured Coverage Start Date Coverage End Date [facility] [address] [place] [id number] GUI SORIA Self - patient is the insured Medical (General) History Medical History History ICD Code Dense breasts, unspecified R92.30 Mammographic heterogeneous density, bila teral breasts R92.333 Hyperlipidemia, unspecified E78.5 COVID-19 U07.1 Surgical History Surgery Date(Month/Year) LASER ablation cervix 2006 Colonoscopy 07/2022
--- OUTSIDE RECORDS SUMMARY | 2024-12-11 09:13 | XMS_ITS ---
Author Organization Samuel Schuster MD Address [address] [place] [phone] Care Team Providers Care Rn Endocrinology Name Role Phone Samuel Schuster Primary Care Provider [phone] REASON FOR VISIT FASTING LIPIDS Medications Medication SIG (Take, Route, Frequency, Duration) Notes Start Date End Date Status Atorvastatin Calcium 40 MG 1 tablet Oral ly Once a day for 90 days 04/07/2024 Unknown Diprolene AF 0.05 % 1 application Clam Sorter ally Once a day for 30 days 11/24/2019 Unknown Nystatin 658834 UNIT/GM 1 application to affected area Externally [...] Samuel Schuster MD [address] [place] [phone] 10/09/2024 Samuel Schuster Hypercholesterolemia E78.00 Assessments Encounter Date Diagnosis (ICD Code) Assessment Notes Treatment Notes Treatment Clinical Notes Section Notes 10/09/2024 Hypercholesterolemia (ICD-10 - E78.00) Plan Of Treatment Pending Test Test Name Order Date Liver Panel 10/09/2024 Lipid Panel with Reflex 10/09/2024 Next Appt Details Provider Name:Samuel Jimenez Dejan francisr, 03/27/2025 07:00:00 AM, [address] [facility], [address], [place], [place], [phone], Provider Name:Samuel Wylie ier, 04/10/2025 08:30:00 AM, [address] [facility] [address] [facility], [address], [place], [place], [phone], Progress Notes * GUI SORIA EDOB: 3 (59 yo F)Acc No.[id number]:10/09/2024 Progress Note Patient:?GUI SORIA Provider:?Samuel Schuster MD :1965???Age:59 Y???Sex:Female D ate:10/09/2024 Address:[address] [place] [address] , [place], [phone] Subjective: * Chief Complaints: * ???1. FASTING LIPIDS. * Medical History:? * Medications:?Unknown Atorvas tatin Calcium 40 MG Tablet 1 tablet Orally Once a day , Unknown traZODone HCl 50 MG Tablet TAKE 1 TABLET BY MOUTH EVERY DAY AT BEDTIME NEEDED FOR 30 DAYS , Unknown Advil PM 200-25 MG Capsule 2 capsules at bedtime as needed Orally Once a day , Unknown Diprolene AF 0.05 % Cream 1 application Externally Once a day , Unknown Nystatin 860520 UNIT/GM Cream 1 application to affected area Externally Twice a day Objective: * Vitals:? Assessment: * Assessment: 1.?Hypercholesterolemia - E7 8.00 (Primary)??? Plan: * Treatment: * * The named appointment provid er may or may not be the originator of this progress note, and it is not deemed complete until electronically signed by the appointment provider. Sign off status: Pending * Provider:?Samuel Schuster MD Date:?0 10/09/2024 Generated for Brandie leong/Vicki/Carlositting on:?12/11/2024 09:13 AM EDT
--- OUTSIDE RECORDS SUMMARY | 2024-12-11 09:13 | XMS_ITS | Patient Health Record ---
Author Organization Samuel Schuster MD Address [address] [place], [place] [id number] Care Team Providers Care Custodial Services Manager Name Role Phone Samuel Schuster Primary Care Provider Allergies Allergen (clinical drug ingredient) Drug/Non Drug Allergy documented on EMR Reaction Allergy Type Onset Date Status Penicillin (uncoded) hives Allergy Active Results Component Value Reference Range Notes Liver Panel Reviewed date:02/06/2024 02:01:30 PM Interpretation: Performing Lab:[address] [phone] Notes/Report: Bilirubin Total 0.6 0.0-1.0 mg/dL Bilirubin Direct 0.2 0.0-0.5 mg/dL Aspartate Amino Transferase 18 5-31 U/L Alanine Aminotransferase 15 0-31 U/L Total Protein 6.7 6.5-8.0 g/dL Albumin Level 4.2 3.5-5.0 g/dL Alkaline Phosphatase 69 39-117 U/L Lipid Panel with Reflex Reviewed date:04/07/2024 02:12:47 PM Interpretation:see back 04-07-2024 Performing Lab:[address] [phone] Notes/Report: Triglycerides 88 <150 mg/dL Desirable Triglyceride: [...] ff Reviewed date:04/01/2024 08:45:29 AM Interpretation: Performing Lab:[facility], [address] [place] [phone] Notes/Report: White Blood Count 4.6 4.8-10.8 X10*3/uL [...] NRBC Abs Auto 0.000 0.0-0.012 X10*3/uL Comprehensive [place]. Panel Fa st Reviewed date:03/31/2024 04:05:09 PM Interpretation: Performing Lab:[facility], [address] [place] [phone] Notes/Report: Sodium 138 135-145 mmol/L Potassium 3.9 3.3-5.1 mmol/L Chloride 106 96-108 mmol/L Carbon Dioxide 25 22-29 mmol/L Anion Gap 11 12-20 Blood Urea Nitrogen 13 9-16 mg/dL Creatinine 0.71 0.5-1.4 mg/dL Estimated Glomerular Filt Rate > 60 NOTE: For -[place] individuals, multiply the result by 1.210. Chronic [...] Panel Reviewed date:03/31/2024 04:02:04 PM Interpretation: Performing Lab:[facility], [address] [place] [phone] Notes/Report: Triglycerides 69 <150 mg/dL Desirable Triglyceride: [...] t Reviewed date:03/31/2024 04:07:17 PM Interpretation: Performing Lab:[facility], [address] [place] [phone] Notes/Report: [id number] 0800 Urine, Clean Catch Color Urine Yellow Appearance Urine Clear PH 6.5 5.0-9.0 Glucose Urine UA Negative Negative mg/dL Urine Blood Negative Negative Specific [place] - Urine 1.010 1.005-1.025 Urine Protein Negative Neg-Trace mg/dL Urine Ketones Negative Negative mg/dL Nitrite Urine Negative Negative Leukocyte Esterase Urine Negative Negative RBC Urine 0-2 0-2 /HPF WBC Urine 0-5 0-5 /HPF Squamous Epithelial Cell Urine 0-2 0-2 /HPF Bacteria Urine None Seen None Seen Hyaline Casts Urine 0-2 0-2 /LPF Liver Panel Reviewed date:07/24/2024 12:51:51 PM Interpretation: Performing Lab:[facility], [address] [place] [phone] Notes/Report: Bilirubin Total 0.5 0.0-1.0 mg/dL Bilirubin Direct 0.2 0.0-0.5 mg/dL Aspartate Amino Transferase 30 5-31 U/L Alanine Aminotransferase 25 0-31 U/L Total Protein 6.2 6.5-8.0 g/dL Albumin Level 3.9 3.5-5.0 g/dL Alkaline Phosphatase 64 39-117 U/L Lipid Panel Reviewed date:07/24/2024 12:54:04 PM Interpretation: Performing Lab:[facility], [address] [place] [phone] Notes/Report: Triglycerides 76 <150 mg/dL Desirable Triglyceride: [...] low results in patients with liver disease. Lisa Scott Reviewed date:02/05/2024 12:30:53 PM Interpretation: Performing Lab:[facility], [address] [place] [phone] Notes/Report: Lisa Scott See Note Specimen held untested for 24 hours; Call to request Chemistry testing. Reason For Referral No Information Medications Medication SIG (Take, Route, Frequency, Duration) Notes Start Date End Date Status Atorvastatin Calcium 40 MG 1 tablet Oral ly Once a day for 90 days 04/07/2024 Unknown Diprolene AF 0.05 % 1 application It Analyst ally Once a day for 30 days 11/24/2019 Unknown Nystatin 898278 UNIT/GM 1 application to affected area Externally Twice a day for 14 days 11/21/2016 Unknown Atorvastatin Calcium 40 MG 1 tablet Oral ly Once a day for 90 days 04/07/2024 Active traZODone HCl 50 MG TAKE 1 TABLET BY MELODY EVERY DAY AT BEDTIME NEEDED FOR 30 DAYS for 90 Unknow n Advil PM 200-25 MG 2 capsules at bedtim e as needed Orally Once a day for 30 day(s) Unknown Immunizations Vaccine Route Administration Date Status Comme [...] Problem Status W/U Status Risk Notes Problem 79431568 Lymphocytosis (D72.820) Active confirm ed Problem 795258530 Tubular adenoma (D36.9) Active confir med Problem 87663345 Anxiety (F41.9) Active confirmed Problem 4777627 Primary insomnia (F51.01) Active confirmed Problem Obstructive sleep apnea syndrome (disorder) (72106353) Obstructive sleep apnea (adult) (pediatric) (G47.33) Active confirmed Problem 02929073 Intrinsic eczema (L20.84) Active confirmed Problem 291783741 Family history o f hypothyroidism (Z83.49) Active confirmed Problem 771867220 Elevated LDL cholesterol level (E78.00) Active confirmed Problem 412802721 OAB (overactive bladder) (N32.81) Active confirmed Problem 03611897 Hypercholesterol emia (E78.00) Active confirmed Problem 77371596 NITHYA (obstructive sleep apnea) (G47.33) Active confirmed Problem 072688809 Basal cell carci noma of skin, site unspecified (C44.91) Active confirmed Vital Signs Blood pressure diastolic 70 mm Hg 07/24/2024 montse ght is down 2 pounds since 06-23-24 Height 70 in 07/24/2024 weight is down 2 pounds since 06-23-24 Blood pressure systolic 98 mm Hg 07/24/2024 sofie ht is down 2 pounds since 06-23-24 Weight 153 lbs 07/24/2024 weight is down 2 pounds since 06-23-24 BMI 21.95 kg/m2 07/24/2024 weight is down 2 pounds since 06-23-24 Encounters Encounter Location Date Provider Diagnosis Samuel Schuster MD [address] [place] [id number] 02/05/2024 Samuel Schuster Hypercholesterolemia E78.00 Samuel Schuster MD [address] [place] [id number] 03/31/2024 Samuel Schuster Annual physical exam Z00.00 ; Lymphocytosis D72.820 ; Elevated LDL cholesterol level E78.00 and Hypercholesterolemia E78.00 Samuel Schuster MD [address] [place] [id number] 04/07/2024 Samuel Schuster Lymphocytosis D72.82 0 ; Annual physical exam Z00.00 ; Hypercholesterolemia E78.00 ; Elevated LDL cholesterol level E78.00 and Primary insomnia F51.01 Samuel Schuster MD [address] [place] [id number] 06/23/2024 Samuel Schuster Lipoma of hip D17.20 Samuel Schuster MD [address] [place] [id number] 07/24/2024 Samuel Schuster Habitual snoring R06 .83 and Elevated LDL cholesterol level E78.00 Assessments Encounter Date Diagnosis (ICD Code) Assessment Notes Treatment Notes Treatment Clinical Notes Section Notes 02/05/2024 Hypercholesterolemia (ICD-10 - E78.00) 03/31/2024 Annual physical exam (ICD-10 - Z00.00) 03/31/2024 Lymphocytosis (ICD-1 0 - D72.820) 04/07/2024 Lymphocytosis (ICD-1 0 - D72.820) stable, will continue to monitor 04/07/2024 Annual physical exam (ICD-10 - Z00.00) labs reviewed and discussed with patient 06/23/2024 Lipoma of hip (ICD-1 0 - D17.20) appears most consistant with a lipoma and has been there for 30 years. would recommend just watching it. 07/24/2024 Habitual snoring (ICD-10 - R06.83) to go back to sleep medicine to be reevaluated 07/24/2024 Elevated LDL cholesterol level (ICD-10 - E78.00) pending labs 03/31/2024 Elevated LDL cholesterol level (ICD-10 - E78.00) 04/07/2024 Hypercholesterolemia (ICD-10 - E78.00) has agreed to go back on medsnain understanding of mdication and diretion for use. 03/31/2024 Hypercholesterolemia (ICD-10 - E78.00) 04/07/2024 Elevated LDL cholesterol level (ICD-10 - E78.00) 04/07/2024 Primary insomnia (ICD-10 - F51.01) Plan Of Treatment Pending Test Test Name Order Date Electrocardiogram (EKG) 11/11/2015 BONE DENSITY DEXA 06/08/2020 BONE DENSITY DEXA 11/02/2014 XR DEXA axial skeleton 12/17/2020 Next Appt Details Provider Name:Samuel Wylie ier, 03/27/2025 07:00:00 AM, [address] [place] [address], [address], [phone], Provider Name:Samuel Wylie ier, 04/10/2025 08:30:00 AM, [address] [place] [address], Suite [facility], [place], [place], [id number], Insurance Providers Payer Name Payer Address Payer Phone Subscriber Number Group Number Insured Name Patient Relationship to Insured Coverage Start Date Coverage End Date [facility] [address] [facility] [address] [place] [address] [phone] [id number] GUI SORIA Self - patient is the insured Medical (General) History Medical History History ICD Code SPINNING BATH PERSON, DR. Martinez Snider,[facility] ([phone]) Mammo done 01/02 colonoscopy done 05/10/[address] Correa - repeat 5 years:[id number] colonoscopy repeat 2 years Elevated blood sugar
--- OUTSIDE RECORDS SUMMARY | 2024-12-11 09:13 | XMS_ITS | Patient Health Record ---
Author Organization [facility] Address [address] [facility] [place] [address] Care Team Providers Care Bundle Cutter Name Role Phone Samuel Schuster MD Primary Care Provider Mat Russell Unavailable [phone] Reason For Referral No Information Plan Of Treatment No Information Insurance Providers Payer Name Payer Address Payer Phone Subscriber Number Group Number Insured Name Patient Relationship to Insured Coverage Start Date Coverage End Date [id number] [address] [address] [place] [id number] Megan Aguila Self - patient is the insured
--- OUTSIDE RECORDS SUMMARY | 2024-12-11 09:14 | XMS_ITS ---
Author Organization [facility] Address [address] [place] [address] Care Team Providers Care Computational Geneticist Name Role Phone Samuel Schuster MD Primary Care Provider Bry Tate Unavailable [phone] Allergies Allergen (clinical drug ingredient) Drug/Non Drug Allergy documented on EMR Reaction Allergy Type Onset Date Status Penicillin hives Drug Allergy Active REASON FOR VISIT Patient presents today for a colon screening Medications Medication SIG (Take, Route, Frequency, Duration) Notes Start Date End Date Status Vitamin B Complex Ac tive Vitamin E Active Multivitamin & Mineral Active Fish Oil Active Vitamin D Active Atorvastatin Calcium 10 MG 1 tablet Oral ly Once a day Active Social History Tobacco Use: Social History [...] Positive Section Notes: Nonsmoker; no sig alcohol Problems Problem Type SNOMED Code ICD Code Onset Dates Problem Status W/U Status Risk Notes Problem Tubulovillous adenoma of large intestine (D12.6) Active confirmed Vital Signs Blood pressure systolic 111 mm Hg 10/03/19 25 Blood pressure diastolic 11 mm Hg 025 Height 70 in 10/02/2024 Weight 150 lbs 10/02/2024 BMI 21.52 kg/m2 10/02/2024 Procedures Procedure Date Ordered Date Performed Result Body Sit e COLONOSCOPY 10/02/2024 N/A Encounters Encounter Location Date Provider Diagnosis [facility] [address] [place] [address] 10/02/2024 Bry Correa Encounter for screen ing [...] Test Test Name Order Date COLONOSCOPY 10/02/2024 Next Appt Details Follow Up: prn, Reason: Provider Name:Bry Correa , 01/02/2025 08:35:00 AM, [address] [place] [address] , [place], [place], [phone], Progress Notes * GUI SORIA EDOB: 3 (59 yo F)Acc No.[id number]:10/02/2024 Progress Notes Patient:?GUI SORIA E Provider:?Bry Correa MD :1965???Age:59 Y???Sex:Female D ate:10/02/2024 Address:[address] [place] [address] , [id number] Pcp:Samuel Schuster MD Subjective: * Chief Complaints: * ???Patient presents today fo r a colon screening * Medical History:? * Surgical History:?Laser abla tion of cervix around 2006 * Hospitalization/Major Diagno stic Procedure:?No Hospitalization History. * Family History:?Father: dece ased.?Mother: .?Maternal Grand Mother: , diagnosed with Colon cancer in 80.? Patient denies any family history of polyps, inflammatory bowel disease, or colon cancer in first-degree relatives. * Social History:?Tobacco Use:?Tobacco Use/Smoking?Patient is a?nonsmoker.?Drugs/Alcohol:?Alcohol Screen?Did you have a drink containing alcohol in the past year??Yes,?How often did you have a drink containing alcohol in the past year??2 to 3 times a week (3 points),?How many drinks did you have on a typical day when you were drinking in the past year??1 or 2 drinks (0 point),?How often did you have 6 or more drinks on one occasion in the past year??Never (0 point),?Points?3,?Interpretation?Positive.?Miscellaneous:?Marital status: . 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 ???Nonsmoker; no sig alcohol. * Medications:?TakingAtorvasta tin Calcium 10 MG Tablet 1 tablet Orally Once a day Vitamin E Vitamin B Complex Vitamin D Fish Oil Multivitamin & Mineral Medication List reviewed and reconciled with the patientTaking Atorvastatin Calcium 10 MG Tablet 1 tablet Orally Once a day Taking Vitamin E Taking Vitamin B Complex Taking Vitamin D Taking Fish Oil Taking Multivitamin & Mineral Medication List reviewed and reconciled with the patient * Allergies:?Penicillin: hives yes[Allergies Verified] Objective: * Vitals:?Wt: 150 lbs, Ht: 70 in, BMI:21.52Index, BP: 111/11 mm Hg, Wt-k.04. Assessment: * Assessment: 1.?Encounter for screening f or malignant neoplasm of colon - Z12.11 (Primary)???2.?Preprocedural examination - Z01.818???3.?Hx of adenomatous colonic polyps - Z86.010???4.?Tubulovillous adenoma of large intestine - D12.6??? Plan: * Treatment: 2.?Hx of adenomatous colonic polyps?Procedure: COLONOSCOPY* with MAC. Stop fish oil for 1 week before the colonoscopysched for 01/02/25 at 8:40 ammiralax 3.?Tubulovillous adenoma of large intestine?Procedure: COLONOSCOPY* with MAC. Stop fish oil for 1 week before the colonoscopysched for 01/02/25 at 8:40 ammiralax * Procedure Codes:?28183 DIAGN OSTIC [id number] COLORECTAL CA SCREEN DOC HNZ7505N TOBACCO NON-RBKNF2004 BP SCR NOT PRFRM REC REASON PRR6511K RCMND FLW-UP 10 YRS DOCD * Preventive Medicine:? ??Urinary Incontinence:?Urinary Incontinence?Assessment:?Absent,?Plan of care documented:?No, reason not specified.? ??Screenings:?Fall Risk Screening?Fall Risk Assessment:?No falls in the past year,?Screening:?No falls in the past year,?Assessment:?Not performed, no reason specified,?Plan of Care:?Not documented, no reason specified.? * Follow Up:?prn * * Sign off status: Completed true * Provider:?Bry Correa MD Date:? 025 Generated for Brandie leong/Vicki/eTransmitting on:?12/11/2024 09:13 AM EDT
--- OUTSIDE RECORDS SUMMARY | 2024-12-11 09:14 | XMS_ITS ---
Author Organization [facility] Address [address] [place] [phone] Care Team Providers Care Steamship Agent Name Role Phone Landen MARQUES, Samuel Primary Care Provider Mat Russell [phone] Encounters Encounter Location Date [facility] [address] [place] [phone] 12/21/2023 Mat Nieto Plan Of Treatment No Information Progress Notes * Bette SORIAPedroOB:1965 (59 yo F)Acc No.[id number]:12/21/2023 Progress Notes Patient:?Bette SORIAy Provider:?Mat Nieto DPM :1965???Age:58 Y???Sex:Female D ate:12/21/2023 Address:[address] [place], [place] [phone] Pcp:Samuel Schuster MD Subjective: * Chief Complaints: [...] DPM Date:? 024 Generated for Brandie leong/Vicki/eTransmitting on:?12/11/2024 09:13 AM EDT
--- OUTSIDE RECORDS SUMMARY | 2024-12-11 09:14 | XMS_ITS ---
Author Organization Samuel Schuster MD Address [address] [place], [place] [id number] Care Team Providers Care Supervisor Rework Name Role Phone Samuel Schuster Primary Care [...] day for 90 days 04/07/2024 Active Nystatin 492436 UNIT/GM 1 application to affected area Externally Twice a day for 14 days 11/21/2016 Not-Taking Vital Signs Blood pressure systolic 102 mm Hg 06/23/20 24 Blood pressure diastolic 64 mm Hg 024 Height 70 in 06/23/2024 Weight 155 lbs 06/23/2024 BMI 22.24 kg/m2 06/23/2024 weight is up 7 pounds since 04-07-24 Encounters Encounter Location Date Provider Diagnosis Samuel Schuster MD [address] [place] [address] [address] [place], [place] [phone] 06/23/2024 Samuel Schuster Lipoma of hip D17.20 [...] it. Next Appt Details Provider Name:Samuel Wylie iedelgado, 03/27/2025 07:00:00 AM, [address] [place] [address], Suite [facility], [place], [place], [phone], Provider Name:Samuel Wylie ier, 04/10/2025 08:30:00 AM, [address] [place] [address], [address], [place], [place], [phone], Progress Notes * GUI SORIA EDOB: 3 (59 yo F)Acc No.[id number]:06/23/2024 Progress Notes Patient:?GUI SORIA E Provider:?Samuel Schuster MD :1965???Age:59 Y???Sex:Female D ate:06/23/2024 Address:[address] [place], [place] [address]LOE A[place]ANDRA, [phone] Subjective: * Chief Complaints: * ???Lump on left hip x 30 yea rs getting bigger * HPI: ???Symptom(s):? patient is a 59 yo female here with complaint of lump of left hip, has been therre for 30 years is now getting bigger. * ROS:?General/Constitutional:?Denies?Chills.?Denies?Fatigue.?Denies?Fever.?Denies?Headache.?ENT:?Patient denies?decreased sense of smell , [...] Cream 1 application Externally Once a dayNystatin 722260 UNIT/GM Cream 1 application to affected area [...] 1 application Externally Once a dayNot-Taking/PRN Nystatin 470450 UNIT/GM Cream 1 application to affected area Externally Twice a dayMedication List reviewed and reconciled with the patient * Allergies:?Penicillin: hives yes[Allergies Verified] Objective: * Vitals:?Ht: 70, Wt:155, BMI: 22.24, BP:102/64 weight is up 7 pounds since 04-07-24. * Examination: ???General Examination: ?GENERAL APPEARANCE:?well developed, well nourished.?MUSCULOSKELETAL:?left hip with a 6 inch lipomatous mass that has been there since her 30's.? Assessment: * Assessment: 1.?Lipoma of hip - D17.20 (P rimary)? Plan: * Treatment: * Procedure Codes:? * * Sign off status: Completed true * Provider:?Samuel Schuster MD Date:?1 08/24/2023 Generated for Brandie leong/Vicki/eTransmitting on:?12/11/2024 09:14 AM EDT History and Physical Notes * [...]
--- OUTSIDE RECORDS SUMMARY | 2024-12-11 09:14 | XMS_ITS ---
Author Organization [facility] Address [address] [place] [phone] Care Team Providers Care Leguillon Debeader Name Role Phone Landen MARQUES, Samuel Primary Care Provider Mat Russell [phone] Encounters Encounter Location Date [facility] [address] [place] [phone] 12/28/2023 Mat Nieto Plan Of Treatment No Information Progress Notes * Bette SORIAPedroOB:1965 (59 yo F)Acc No.[id number]:12/28/2023 Progress Notes Patient:?Bette SORIAy Provider:?Mat Nieto DPM :1965???Age:58 Y???Sex:Female D ate:12/28/2023 Address:[address] [place], [place] [phone] Pcp:Samuel Schuster MD Subjective: * Chief Complaints: [...]
--- NOTE | 2025-03-25 13:57 | P.CONAN_ITS ---
Documented by User: Paige Ludwig NP 03/25/25 13:58 HPI - Anesthesia Eval Consult details Narrative: 59 yr old female for colonoscopy [facility] Past Medical History Medical History Elevated cholesterol Plantar fasciitis Surgical History Surgical History H/O colonoscopy with polypectomy Social History Social History Are you a primary child day care teacher to a significant other at home: No Do you presently have visiting nurse or other home services: No Patient Tobacco Use Status: Never used Tobacco Use of substances other than those prescribed or required for medical reasons: No Have you been hit, kicked, punched, or otherwise hurt by someone within the past year? If so, by whom?: No Are you DNR?: No Advance Directives: No Advance Directives Information Provided: Yes Patient : No Poor oral hygiene: No Meds Allergies Allergy/AdvReac Type Severity Reaction Status Date / Time penicillin G Allergy Mild Hives Verified 03/27/25 06:46 Home Medications ?Medication ?Instructions ?Recorded ?Confirmed ?Last Taken ?Type Fish Oil 08/18/22 Unknown History Vitamin D3 08/18/22 Unknown History multivitamin with minerals 08/18/22 08/18/22 Unknown History vitamin B complex 08/18/22 Unknown History vitamin E 08/18/22 Unknown History atorvastatin 40 mg tablet 40 mg PO DAILY 03/27/2512/14 Unknown History estradiol 0.01% (0.1 mg/gram) 1 g vaginal 3XW 03/27/25 03/27/25 Unknown History vaginal cream Documented by User: Destiny Childers MD 03/27/25 07:25 [facility] Past Medical History Medical History Elevated cholesterol Plantar fasciitis Family History Family history of problems with anesthesia: No Surgical History Surgical History H/O colonoscopy with polypectomy History of Problems with Anesthesia: No Social History Social History Are you a primary child day care teacher to a significant other at home: No Do you presently have visiting nurse or other home services: No Patient Tobacco Use Status: Never used Tobacco Use of substances other than those prescribed or required for medical reasons: No Have you been hit, kicked, punched, or otherwise hurt by someone within the past year? If so, by whom?: No Are you DNR?: No Advance Directives: No Advance Directives Information Provided: Yes Patient : No Poor oral hygiene: No Meds Allergies Allergy/AdvReac Type Severity Reaction Status Date / Time penicillin G Allergy Mild Hives Verified 03/27/25 06:46 Home Medications ?Medication ?Instructions ?Recorded ?Confirmed ?Last Taken ?Type Fish Oil 08/18/22 Unknown History Vitamin D3 08/18/22 Unknown History multivitamin with minerals 08/18/22 08/18/22 Unknown History vitamin B complex 08/18/22 Unknown History vitamin E 08/18/22 Unknown History atorvastatin 40 mg tablet 40 mg PO DAILY 03/27/2512/14 Unknown History estradiol 0.01% (0.1 mg/gram) 1 g vaginal 3XW 03/27/25 03/27/25 Unknown History vaginal cream Exam Airway Mallampati Class: II TM Dist: >3cm Neck ROM: Full Heart: rrr Lungs: cta Assessment and Plan Assessment Anesthesia Assessment: Anesthesia Plan Discussed and Chart Reviewed Final Anesthetic Review Family History of Problems with Anesthesia: No History of Problems with Anesthesia: No NPO: Yes ASA Class: II Final Preanesthetic Review: No Changes in Pt Med Stat, Meds/Allgs Chart Reviewed and Consent Obtained/Reviewed Patient Risk: Low Procedure Risk: Low Anesthetic Plan Anesthetic Plan: MAC: Disposition: Standard PACU
[2025-03-27 06:47] VITALS: TEMP 36.3; BMI 21.4
[2025-03-27] MEDS: Lactated Ringers 1,000 ML 100 ML IVCONT (07:11)
[2025-03-27 08:42] VITALS: BP 106/68; PULSE 74; RESP 15; TEMP 36.8; O2SAT 100
--- NOTE | 2025-03-27 08:48 | P.BOP_ITS ---
Brief Operative Note Date of Service: 03/27/25 Pre-op diagnosis: Screening Post-op diagnosis: other (Colon polyp) Procedure: Colonoscopy to the cecum and TI with hot snare polypectomy Surgeon: Bry Correa MD Anesthesia: MAC Was an Regional Sales Coordinator used for this Procedure?: No Estimated blood loss (mL): 0 Pathology: other (A. Polyp at 40cm) Condition: stable Disposition: PACU
[2025-03-27 08:57] VITALS: BP 110/59; PULSE 67; RESP 14; TEMP 36.6; O2SAT 99
--- NOTE | 2025-03-27 09:34 | OP_ITS ---
DATE OF SERVICE: 03/27/2025 SURGEON: Bry Correa MD INDICATIONS: The patient presents for evaluation of personal history of colon polyps and need for colorectal cancer screening. Full consent was obtained from her for this, including risks of bleeding and perforation. PREOPERATIVE DIAGNOSIS: POSTOPERATIVE DIAGNOSIS: PROCEDURE PERFORMED: Colonoscopy to the cecum and terminal ileum with hot snare polypectomy. ESTIMATED BLOOD LOSS: COMPLICATIONS: ANESTHESIA: Medication used, monitored anesthesia care. ASSISTANTS: SPECIMENS: PREOPERATIVE DIAGNOSES: Colorectal cancer screening and personal history of tubular adenoma of the colon. POSTOPERATIVE DIAGNOSES: Colorectal cancer screening and personal history of tubular adenoma of the colon, colon polyp, diverticulosis, and internal hemorrhoids. DESCRIPTION OF PROCEDURE: The patient was placed in left lateral decubitus position. The digital rectal exam revealed no abnormalities. The Olympus video pediatric colonoscope was entered into the rectum advanced easily to the cecum. Once in the cecum, I did identify normal-appearing cecal pouch with appendiceal orifice and a normal-appearing ileocecal valve. The terminal ileum was cannulated and appeared normal. Scope withdrawn back in the colon. The entire cecum and ileocecal valve appeared normal. The scope was slowly withdrawn assessing all mucosal surfaces carefully. Preparation was excellent. At 40 cm, there was a flat, but raised approximately 8-10 mm polyp, which was removed by hot snare polypectomy and recovered by suction. The polypectomy site appeared clean, without any sign of residual polyp nor bleeding. I did not visualize any other polyps, colitis, nor angiodysplasia. There was a mild amount of sigmoid diverticulosis. In the rectum, scope was retroflexed visualizing internal hemorrhoids, but no other pathology. The rectal mucosa appeared normal. The scope was straightened and withdrawn from the patient. She tolerated the procedure well and was returned to the recovery area in stable condition. IMPRESSION: 1. Colon polyp. 2. Diverticulosis. 3. Internal hemorrhoids. PLAN: The results of the pathology will be checked. She was advised not to use any aspirin, NSAIDs, nor fish oil for 1 week. I would recommend a repeat colonoscopy in 3 years for further surveillance. She will otherwise see me on a p.r.n. basis. MD WILLIS Enamorado/MILY / [id number]
== END 2025-03-27 09:33 | disposition home or self-care (01) ==
PROVIDERS: PCP Internal Medicine; Visit Provider Internal Medicine
PROC: 0DJD8ZZ Inspection of Lower Intestinal Tract, Via Natural or Artificial Opening Endoscopic (ICD-10-PCS; CPT 45378; principal; 2025-03-27 07:30)
DX: Z12.11 Encounter for screening for malignant neoplasm of colon (principal); Z86.0101 Personal history of adenomatous and serrated colon polyps; D12.5 Benign neoplasm of sigmoid colon; K57.30 Diverticulosis of large intestine without perforation or abscess without bleeding; K64.8 Other hemorrhoids; E78.00 Pure hypercholesterolemia, unspecified; M72.2 Plantar fascial fibromatosis; Z79.899 Other long term (current) drug therapy; Z88.0 Allergy status to penicillin
CPT/HCPCS: 45385; 88305; J2003; J2704

== ENCOUNTER 2025-06-25 11:17 | Outpatient (REF) | payer OTHER, SELFPAY | END 2025-06-25 11:18 | disposition home or self-care (01) | LOC: HO.LNP 11:17 | PROVIDERS: Visit Provider Internal Medicine | DX: F41.9 Anxiety disorder, unspecified (principal) | CPT/HCPCS: 84443 ==